=== PATIENT | male | born 1950 | race Caucasian/White ===

== ENCOUNTER → 2022-03-13 | Outpatient (CLI) | payer MEDICARE, OTHER, SELFPAY ==
--- NOTE | 2022-03-13 | PROSBIL_PTH ---
PATIENT: AUGUST CUEVAS LOC: [facility] U#:[id number] AGE/SX: 71/M ROOM: RE03/13/[address]: Dr. Nuno Garcia MD : 1950 BED: DIS: 03/13/2022 SPEC #: [id number] RECD: 03/13/22 16:25 STATUS: PHOEBE VALENTINA #: [id number] SARAH: 03/13/22 00:[address]: Nuno Garcia DEPT: SURGICAL PATHOLOGY RECD BY: Amauri Hermosillo ENTERED: 03/14/22 09:13 SP TYPE: PROST BX VANDANA DR: Dr. Kayleigh Cooney MD Tissues: A - PROSTATE RIGHT B - PROSTATE RIGHT C - PROSTATE RIGHT D - PROSTATE LEFT E - PROSTATE LEFT F - PROSTATE LEFT Procedures: PROSTATE BX HEADER OPERATION: Prostate biopsy PRE-OP DIAGNOSIS: Elevated PSA TISSUE SUBMITTED: A - Right apex, B - Right mid, C - Right base, D - Left apex, E - Left mid, F - Left base MICROSCOPIC DIAGNOSIS A. Right prostate, apex, core biopsy: Prostatic tissue, negative for malignancy. B. Right prostate, mid, core biopsy: Prostatic tissue, negative for malignancy. C. Right prostate, base, core biopsy: Prostatic adenocarcinoma. Anthony grade: 3+3=6 Number of cores involved: 2/2 Proportion of tissue involved: ~10% Perineural invasion: Not identified. Greatest tumor length: 0.4 cm, discontinuous. Focal high-grade prostatic intraepithelial neoplasia (HGPIN). See comment. D. Left prostate, apex, core biopsy: Prostatic adenocarcinoma. Anthony grade: 3+3=6 Number of cores involved: 1/2 Proportion of tissue involved: ~30% Perineural invasion: Present, focal. Greatest tumor length: 0.3 cm E. Left prostate, mid, core biopsy: Focal high-grade prostatic intraepithelial neoplasia (HGPIN). F. Left prostate, base, core biopsy: Prostatic tissue, negative for malignancy. SJ:pedro 03/15/2022 COMMENT C. Immunohistochemistry ([id number]) supports the above diagnosis. Case has been reviewed in consultation with Dr. Montgomery who concurs with the above diagnosis. IDC:AM MICROSCOPIC DESCRIPTION Slides are reviewed. GROSS DESCRIPTION A - Received is one container designated prostate, right apex. The specimen consists of one elongated fragment of light leal-white soft tissue measuring 1.1 cm in length and 0.1 cm in diameter. The specimen is totally submitted in one cassette. B - Received is one container designated prostate, right mid. The specimen consists of two elongated fragments of light leal-white soft tissue measuring 0.6 and 1.2 cm in length and 0.1 cm in diameter. The specimen is totally submitted in one cassette. C - Received is one container designated prostate, right base. The specimen consists of two elongated fragments of light leal-white soft tissue each measuring 1.2 cm in length and 0.1 cm in diameter. The specimen is totally submitted in one cassette. D - Received is one container designated prostate, left apex. The specimen consists of two elongated fragments of light leal-white soft tissue each measuring 0.5 cm in length and 0.1 cm in diameter. The specimen is totally submitted in one cassette. E - Received is one container designated prostate, left mid. The specimen consists of two elongated fragments of light leal-white soft tissue measuring 0.6 and 1 cm in length and 0.1 cm in diameter. The specimen is totally submitted in one cassette. F - Received is one container designated prostate, left base. The specimen consists of two elongated fragments of light leal-white soft tissue measuring 0.8 and 0.9 cm in length and 0.1 cm in diameter. The specimen is totally submitted in one cassette. / FAISAL:pedro 03/14/2022 TC:0 CPT: G0146
--- NOTE | 2022-03-13 | IMM_PTH ---
PATIENT: AUGUST CUEVAS LOC: [facility] U#:[id number] AGE/SX: 71/M ROOM: RE03/13/[address]: Dr. Nuno Garcia MD : 1950 BED: DIS: 03/13/2022 SPEC #: [id number] RECD: 03/15/22 13:03 STATUS: PHOEBE REQ #: [id number] SARAH: 03/13/22 00:[address]: Nuno Garcia DEPT: IMMUNOHISTOCHEMISTRY RECD BY: Raven Muse ENTERED: 03/15/22 13:04 SP TYPE: IMMUNO OTHR DR: Dr. Kayleigh Cooney MD Tissues: C - PROSTATE RIGHT Procedures: P40 (add) 34BE12 (initial) PHYSICIAN & INSTITUTION [place] [phone] SPECIMEN INFORMATION: Tissue Source: C - Right prostate, base, core biopsy Clinical Info: Elevated PSA Specimen Number: [id number] CPT code: 75319, 26401 METHODOLOGY: Deparaffinized sections of prefer/formalin-fixed tissue or PAP/DQ stained slides are incubated with monoclonal/polyclonal antibodies/oligonucleotide probes. Localization is made via biotin free immunoperoxidase method. Appropriate controls are performed and reacted as expected. Results on target cell population are indicated in the following table: RESULTS: ANTIBODY / CLONE RESULT Block C P40 (BC28) negative 34BE12 (34BE12) negative These tests were developed and their performance characteristics determined by [facility]. They may not have been cleared or approved by the U.S. Food and Drug Administration. The FDA has determined that such clearance or approval is not necessary. The above immunohistochemical/dualISH markers are ordered and reviewed by the Pathologist. INTERPRETATION: C. Right prostate, base, core biopsy: Adenocarcinoma. FAISAL:pedro 03/15/2022
== END | disposition home or self-care (01) ==
LOC: LABSPEC 16:41
PROVIDERS: PCP Family Medicine; Referring Provider Urology; Visit Provider Urology
DX: C61 Malignant neoplasm of prostate (principal)
CPT/HCPCS: 88305; 88341; 88342; G0416

== ENCOUNTER → 2022-09-06 | Outpatient (CLI) | payer MEDICARE, OTHER, SELFPAY ==
[2022-09-06 15:30] LABS: PSA,Total- Diagnostic 4.64 ng/mL (0.0-4.0)
== END | disposition home or self-care (01) ==
LOC: MTLAB 12:53
PROVIDERS: PCP Family Medicine; Referring Provider Urology; Visit Provider Urology
DX: C61 Malignant neoplasm of prostate (principal)
CPT/HCPCS: 36415; 84153

== ENCOUNTER → 2024-09-15 | Outpatient (CLI) | payer MEDICARE, OTHER, SELFPAY ==
--- NOTE | 2024-09-15 10:42 | MRI_ITS ---
STUDY: MR PROSTATE GLAND/ PELVIS WITH T WITHOUT CONTRAST REASON FOR EXAM: Male, 74 years old. MALIGNANT NEOPLASM OF PROSTATE TECHNIQUE: Standardized fat and water weighted pulse sequences were obtained in all 3 orthogonal planes, pre-and post contrast administration. IV 17cc clariscan was administered for the contrast portion of the examination. COMPARISON: None. FINDINGS: Prostate gland volume/size: 4.38 x 3.87 x 5.52 cm. Anterior fibromuscular stroma: Normal Peripheral zone: Small 5.6 mm low signal nodule in the far anterior and medial aspect of the left peripheral zone with diffuse bright diffusion weighted signal in the nodule and the surrounding left peripheral zone and associated ADC dark signal. On the postcontrast study no enhancement is present in the nodule with is seen in the surrounding tissue. This could represent a poorly vascularized or necrotic tumor or nonspecified intermediate nodule that is equivocal. Mostly symmetric bilaterally with a few linear interstitial fibrotic strands bilaterally. Central zone: Diffusely heterogeneous with small intervening cyst and nodules consistent with BPH. Diffuse postcontrast enhancement is present bilaterally. No discrete enhancing nodule or mass is seen that would indicate a neoplasm. Transitional zone: Diffusely heterogeneous with small intervening cyst and nodules consistent with BPH. Diffuse postcontrast enhancement is present bilaterally. No discrete enhancing nodule or mass is seen that would indicate a neoplasm. Prostate capsule: Intact Seminal vesicles: Normal bilaterally Pelvic sidewall lymphadenopathy: No lymphadenopathy is present. Bony structures: No marrow edema or lytic or blastic lesions are present. No enhancing lesions are present in the osseous structures. Normal urinary bladder. Normal visualized small intestine. There are multiple colonic diverticula of the sigmoid colon consistent with chronic diverticulosis. There is no pelvic fluid. There is no pelvic mass lesion or lymphadenopathy. Normal visualized pelvic arteries. Normal abdominal wall. MRI/Pelvis W/WO Contrast IMPRESSION: 1. Peripheral zone: Small 5.6 mm low signal nodule in the far anterior and medial aspect of the left peripheral zone with diffuse bright diffusion weighted signal in the nodule and the surrounding left peripheral zone and associated ADC dark signal. On the postcontrast study no enhancement is present in the nodule with is seen in the surrounding tissue. This could represent a poorly vascularized or necrotic tumor or nonspecified intermediate nodule that is equivocal 2. It is possible after biopsy the tumor was removed or cored and is now poorly visualized. Also if there has been any treatment this could suppress neoplastic features detected by MRI. 3. PI-RADS 3: intermediate (the presence of clinically significant cancer is equivocal) 4. Referring service reports a positive prostate gland biopsy indicative of neoplasm. 5. Prostate PET/CT exam can also be performed to determine if there is viable malignant neoplasm in the prostate gland. Prostate MRI reference: 15-30% of prostate cancers can go undetected on Prostate MRI. Monitoring and assessment by Primary physician, Urology, and oncology service recommended and treated clnically. (Cancers (Bas[place]). 2022Oct 09;15(06):5827. doi: [id number] Prostate Cancers Invisible on Multiparametric MRI: Pathologic Features in Correlation with Whole-Mount Prostatectomy Natalio Truong 1,2,*, Nick Trevino 3, Chelly Boogie 1,2, Jessica Hsieh 1,2, Mauro Milton 4, Julito Poon 5, Shadi Bell 6, Compa Ydaav 1,2, Lorrie Salgado 1,2) Reference information: Normal prostate tissue Benign prostatic hypertrophy cancer/tumor - low signal peripheral , transitional, and central zones malignancy appears as bright on DWI and low signal on ADC map Prostate imaging-reporting and data system (PI-RADS) PI-RADS 1: very low (clinically significant cancer is highly unlikely to be present) PI-RADS 2: low (clinically significant cancer is unlikely to be present) PI-RADS 3: intermediate (the presence of clinically significant cancer is equivocal) PI-RADS 4: high (clinically significant cancer is likely to be present) PI-RADS 5: very high (clinically significant cancer is highly likely to be present) PI-RADS X: component of exam technically inadequate or not performed Prostate malignancy distribution: Peripheral zone: 70-80% Transitional zone: 10-20% Central zone: 5% or less Electronically Signed: Jose Antonio Romero MD at 10:33 EST ,
[2024-09-15 11:37] LABS: CREATININE FINGERSTICK < 1.0 mg/dL (0.70-1.30); EGFR FINGERSTICK > 60.0000 mL/min (>60)
== END | disposition home or self-care (01) ==
PROVIDERS: PCP Family Medicine; Referring Provider Urology; Visit Provider Urology
DX: C61 Malignant neoplasm of prostate (principal)
CPT/HCPCS: 72197; A9575

== ENCOUNTER → 2024-10-06 | Outpatient (CLI) | payer MEDICARE, OTHER, SELFPAY ==
--- NOTE | 2024-10-06 13:00 | PROSBIL_PTH ---
PATIENT: AUGUST CUEVAS LOC: [facility] U#:[id number] AGE/SX: 74/M ROOM: RE10/06/[address]: Dr. Nuno Garcia MD : 1950 BED: DIS: 10/06/2024 SPEC #: [id number] RECD: 10/07/24 07:19 STATUS: PHOEBE REJohann #: [id number] SARAH: 10/06/24 13:[address]: Nuno Garcia DEPT: SURGICAL PATHOLOGY RECD BY: Diana Wheeler ENTERED: 10/07/24 07:20 SP TYPE: PROST BX OT DR: Dr. Kayleigh Cooney MD Tissues: A - PROSTATE RIGHT B - PROSTATE LEFT Procedures: PROSTATE BX HEADER OPERATION: Prostate biopsy PRE-OP DIAGNOSIS: Elevated PSA TISSUE SUBMITTED: A- Right base, B- Left apex MICROSCOPIC DIAGNOSIS A. Right prostate, base, core biopsy: Prostatic adenocarcinoma. Rob grade: 3+4=7 Number of cores involved: 1/2 Proportion of tissue involved: ~40 % Perineural invasion: Not identified. Greatest tumor length: 0.7 cm Focal high-grade prostatic intraepithelial neoplasia (HGPIN). B. Left prostate, apex, core biopsy: Prostatic tissue, negative for malignancy. FAISAL. 10/08/2024 COMMENT Case has been reviewed in consultation with Dr. Montgomery who concurs with the above diagnosis. IDC:AM MICROSCOPIC DESCRIPTION Slides are reviewed. GROSS DESCRIPTION A - Received is one container designated prostate, right base. The specimen consists of two elongated fragments of light leal-white soft tissue each measuring 1.0 cm in length and 0.1 cm in diameter. The specimen is totally submitted in one cassette. B - Received is one container designated prostate, left apex. The specimen consists of two elongated fragments of light leal-white soft tissue measuring 0.5 and 0.7 cm in length and 0.1 cm in diameter. The specimen is totally submitted in one cassette. FAISAL. 10/07/2024 TC:0 CPT: G0146
== END | disposition home or self-care (01) ==
LOC: LABSPEC 16:27
PROVIDERS: PCP Family Medicine; Referring Provider Urology; Visit Provider Urology
DX: C61 Malignant neoplasm of prostate (principal); R97.20 Elevated prostate specific antigen [PSA]
CPT/HCPCS: 88305; G0416

== ENCOUNTER 2024-11-27 09:26 | Day surgery (SDC) | payer MEDICARE, OTHER, SELFPAY ==
[2024-11-27] VITALS (9 sets, daily range): BP systolic 116–126; BP diastolic 80–98; PULSE 74–104; RESP 14–18; TEMP 2.2–36.9; O2SAT 92–99; BMI 27.6
--- NOTE | 2024-11-27 09:53 | PCM.PRE.AN2 ---
ASA Classification* ASA Classification ASA Classification: 2 Assessment & Plan Anesthesia* Anesthesia Assessment Anesthesia Assessment: Discussed sedation and/or anesthesia options, risks, benefits, and alternatives with patient/parents/legal guardian/POA. Questions invited. The patient/parents/legal guardian/POA seems to understand and agrees to proceed with anesthesia plan. Reviewed the physical assessment, medical history, allergy history and patient home medications list prior to surgery/procedure/anesthetic and documented any changes. Performed airway and anesthesia risk assessments. Anesthesia Type Anesthesia Type: General Anesthesia Focused Assessment* Temperature: 98.5 F Pulse Rate: 74 Blood Pressure: 117/87 Respiratory Rate: 16 Pulse Ox: 98 Airway Assessment Mouth opens: >3 cm Mallampati Score: II Focused Labs Anesthesia Preop lab: CBC CHEMISTRY COAG Pre-Assessment Diagnosis/Proposed Procedure Planned Operative Procedure(s): SPACE OARS AND GOLD MARKERS PLACEMENT Anesthesia History Anesthesia History - safety specialist: Anesthesia History - safety specialist Hx Hospitalization No 11/20/24 11:30 Any Problems With Anesthesia No 11/20/24 11:30 Cholinesterase deficiency No 11/20/24 11:30 You/Your Family Experience No 11/20/24 11:30 fever (hyperthermia) with Relationship Recent Exposure to Contagious No 11/27/24 09:47 Disease Does patient have nerve No 11/20/24 11:30 stimulator Patient instructed to have device shut off --Does patient have Pacemaker No 11/27/24 09:47 or ICD? When Was Last Pacemaker Check QUESTION #4 FULL TEXT: You/Your Family Experience fever (hyperthermia) with Anesthesia Last Oral Intake Last Oral intake: Last Oral Intake NPO since 00:00 11/27/24 09:47 Meds taken in AM with sips of water? Meds patient instructed to take am of surgery PONV PONV - safety specialist: PONV - safety specialist Female No 11/20/24 11:30 HX of Motion Sickness No 11/20/24 11:30 HX of N/V After Surgery No 11/20/24 11:30 Non-Smoker Yes 11/20/24 11:30 Duration of Surgery greater No 11/20/24 11:30 than 60 minutes Number of Risk Factors 1 11/20/24 11:30 PONV Score Low Risk 11/20/24 11:30 Height & Weight Height & Weight: Anesthesia: Height & Weight Height 5 ft 11 in 11/27/24 09:47 Weight: 89.811 kg 11/27/24 09:47 Body Mass Index (BMI) 27.6 11/27/24 09:47 Respiratory Assessment Respiratory Assessment - safety specialist: Respiratory Tract Infection Hx - safety specialist Hx Respiratory Tract Infection No 11/20/24 11:30 STOP Sleep Apnea STOP Sleep Apnea - safety specialist: STOP Sleep Apnea - safety specialist Hx Hypertension No 11/20/24 11:30 Hx Sleep Apnea No 11/20/24 11:30 CPAP BIPAP Do you snore loudly (louder Yes 11/20/24 11:30 than talking or can be heard Do you often feel tired/ Yes 11/20/24 11:30 fatigued/ sleepy during daytime? Has anyone observed you stop No 11/20/24 11:30 breathing during sleep? STOP Results Positive 11/20/24 11:30 QUESTION #5 FULL TEXT : Do you snore loudly (louder than talking or can be heard through closed doors)? Tobacco Use History Tobacco Use History - safety specialist: Tobacco Use History - safety specialist Tobacco Use Smoking Status Never smoker 11/20/24 11:30 Hx Tobacco Use No 11/20/24 11:30 Years Smoking Packs Smoked per Day Smoking Cessation Date was within the last 15 years Hx Smoking Cessation Date Hx Smoking Cessation Counseling Hematologic Medial History Hematologic Hx - safety specialist: Hematologic Medical Hx - machine marker Hx of Blood Transfusion No 11/20/24 11:30 Hx of Transfusion in last 3 No 11/20/24 11:30 Months Date of Last Transfusion (if within last 3 months) Ever experience any problems No 11/20/24 11:30 with transfusion(s)? Specify any problems Hx of Preganancy in last 3 N/A 11/20/24 11:30 Months Nurse Filling Out Transfusion DSCHRIBER 11/20/24 11:30 & Questions: Date: 11/20/24 11/20/24 11:30 Time: 11:32 11/20/24 11:30 Patient unable to answer at this time (ie. confused, unrespo /Reproduction History /Reproductive History - safety specialist: /Reproductive Hx- safety specialist Hx Now No 11/20/24 11:30 Gestational Age (in weeks): EDC: Hx Hx Para Hx Section SAB No 11/20/24 11:30 Active Medications Active Medications: Current Medications Generic Name Dose Route Start Last Admin Trade Name Freq PRN Reason Stop Dose Admin Cefazolin Sodium 2 gm/ N/A 20 mls @ 400 mls/hr 11/27/24 11:30 IV 11/27/24 11:32 PREOP ONE Sodium Chloride 1,000 mls @ 15 mls/hr 11/27/24 09:30 IV 12/02/24 22:49 .Q48H [facility] Protocol PFSH Medical History Wears glasses Arthritis Restless legs Heartburn Asthma Non-smoker History of pain when walking History of edema History of Holter monitoring Hx of fracture of hip Hyperlipemia Prostate cancer Home Medications ?Medication ?Instructions ?Recorded ?Last Taken ?Type atorvastatin 20 mg tablet 10 mg PO QHS 11/10/24 Unknown History coenzyme Q10 100 mg capsule (Co 100 mg PO QDAY 11/10/24 Unknown History Q-10) multivitamin 1 tab PO QAM 11/10/24 Unknown History vitamins A,C,R-ssdv-euwgkq 4,296 1 cap PO BID 11/10/24 Unknown History mcg-226 mg-90 mg capsule (PreserVision AREDS) lysine 500 mg tablet (L-Lysine) 500 mg PO QDAY 11/13/24 Unknown History saw palm 160 mg-vit E 100 3 tab PO DAILY 11/13/24 Unknown History unit-selen 100 lwx-uams-zzsthn-pygeum tablet ([facility]) BOWELLIA 2 cap PO DAILY 11/20/24 Unknown History RESVERITOL 2 cap PO DAILY 11/20/24 Unknown History atorvastatin 10 mg tablet 10 mg PO QHS 11/20/24 Unknown History Allergy/AdvReac Type Severity Reaction Status Date / Time No Known Allergies Allergy Verified 11/27/24 09:45 Surgical History Hx of right cataract extraction Hx of left cataract extraction Hx of colonoscopy H/O prostate biopsy Social History Smoking Status: Never smoker alcohol intake: never Review of Systems (Anesthesia) ROS Narrative System reviewed and no additional complaints, except as documented.
[2024-11-27] MEDS: 0.9% Normal Saline (1000mL) 1,000 ML 15 ML IV (09:55)
--- NOTE | 2024-11-27 10:50 | PCM.HP.STD ---
HPI - General General Date of Service: 11/27/24 Chief Complaint: Prostate cancer HPI Narrative AUGUST CUEVAS, is a 74 M who presents for placement of gold markers and spacer gel [facility] Medical History Wears glasses Arthritis Restless legs Heartburn Asthma Non-smoker History of pain when walking History of edema History of Holter monitoring Hx of fracture of hip Hyperlipemia Prostate cancer Home Medications ?Medication ?Instructions ?Recorded ?Last Taken ?Type atorvastatin 20 mg tablet 10 mg PO QHS 11/10/24 Unknown History coenzyme Q10 100 mg capsule (Co 100 mg PO QDAY 11/10/24 Unknown History Q-10) multivitamin 1 tab PO QAM 11/10/24 Unknown History vitamins A,C,C-ghvm-pejxxt 4,296 1 cap PO BID 11/10/24 Unknown History mcg-226 mg-90 mg capsule (PreserVision AREDS) lysine 500 mg tablet (L-Lysine) 500 mg PO QDAY 11/13/24 Unknown History saw palm 160 mg-vit E 100 3 tab PO DAILY 11/13/24 Unknown History unit-selen 100 lgg-jdou-vlnzlv-pygeum tablet ([employer]) BOWELLIA 2 cap PO DAILY 11/20/24 Unknown History RESVERITOL 2 cap PO DAILY 11/20/24 Unknown History atorvastatin 10 mg tablet 10 mg PO QHS 11/20/24 Unknown History Allergy/AdvReac Type Severity Reaction Status Date / Time No Known Allergies Allergy Verified 11/27/24 09:45 Surgical History Hx of right cataract extraction Hx of left cataract extraction Hx of colonoscopy H/O prostate biopsy Social History Smoking Status: Never smoker alcohol intake: never Vital Signs Vital Signs Vital Signs: 11/27/24 09:47 11/27/24 09:47 11/27/24 09:53 Temperature 98.5 F 98.5 F Temperature Source Temporal Pulse Rate 74 74 Respiratory Rate 16 16 Respiratory Pattern Normal Blood Pressure 117/87 H 117/87 H Blood Pressure Mean 97 Blood Pressure Source Monitor Blood Pressure Position Semi-Fowlers Blood Pressure Location Left Arm Pulse Ox 98 98 Oxygen Delivery Method Room Air Weight Weight: 89.811 kg Body Mass Index (BMI) 27.6
--- NOTE | 2024-11-27 10:50 | PCM.DC ---
Discharge Instructions Diet Discharge Diet: No restrictions DC O2, CPAP, BIPAP needs Home O2 Discharge instructions: No Dressing / Incision Discharge Activity: Return to Normal Activity and May Not Drive (while taking narcotic pain medications.) Dressing / Incision Call your doctor if you observe: Fever of 101 or Higher Follow Up Care Please Follow Up With: Nuno Garcia MD When: Call [phone] for an appointment Test Results: Test results from this visit will be discussed in further detail at your follow-up appointment, if applicable. Discharge Plan Admission Primary Reason for Your Visit: gold markers and spacer gel Attending Provider: Nuno Garcia Primary Care Provider: Kayleigh Cooney Instructions Print Language: Andorran Discharge Orders/Prescriptions Prescriptions: Continued lysine [L-Lysine] 500 mg tablet 500 mg PO QDAY [facility] 160-100-100 mg-unit-mcg tablet 3 tab PO DAILY atorvastatin 20 mg tablet 10 mg PO QHS coenzyme Q10 [Co Q-10] 100 mg capsule 100 mg PO QDAY multivitamin Tablet 1 tab PO QAM PreserVision AREDS 4,296 mcg-226 mg-90 mg capsule 1 cap PO BID atorvastatin 10 mg tablet 10 mg PO QHS RESVERITOL 2 cap PO DAILY BOWELLIA 2 cap PO DAILY Referrals / Follow Up: Kayleigh Cooney MD [Primary Care Provider] - Nuno Garcia MD [Med Staff - Active Staff] - Disposition Disposition (needs filled in before D/C Order can be placed): Home, Self Care
[2024-11-27] MEDS: Cefazolin 2 GM in Syringe IV (10:59)
--- NOTE | 2024-11-27 11:07 | PCM.OPRPT ---
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 Type of Anesthesia: General RN Documented Start/Stop Times: Operation Date: 11/27/24 11:30 Case Time Into Pre-Op 11/27/24 09:29 Anesthesia Start 11/27/24 10:49 Into Room 11/27/24 10:49 Procedure Start 11/27/24 10:59 Procedure End 11/27/24 11:05 Procedure Start Time: 10:59 Procedure Stop Time: 11:07 Select all DRAINS/GRAFTS/IMPLANTS that apply: None Estimated Blood Loss: 0 Specimen collected: No Description of surgery: In the preoperative area I reviewed with the patient how the procedure is done we talked about the risk of the procedure including the risk of infection, bleeding, migration of the spacer gel, the patient is planning to have radiation to the prostate he understands that the spacer gel has demonstrated benefit in reducing the risk of toxicity from the ration radiation to the rectum but there is no guarantees that this spacer gel will prevent any serious complications or toxicity to the rectum or bowels. After reviewing this with the patient and his family organ to proceed with placement of a spacer gel matrix. Patient was taken back to the operating room after smooth induction of anesthesia he was placed supine on the table. The genitals and perineum were prepped and draped in usual sterile fashion. I then introduced a biplanar ultrasound probe into the rectum and performed ultrasonography and identified the Denonvilliers' fascia the prostate mid base and apex and seminal vesicles. The spacer gel mix was then prepared on the back table per manufactures instruction. Under ultrasound guidance in the midline perineum a bevel needle down we advanced through the perineum below the prostate into the space of Denonvilliers' fascia. This space which could be identified by ultrasound with a bright white layer between the prostate and the rectum. I then injected a puff of normal saline to identify the space further. After I confirmed that the needle was in the correct space in the mid prostate and the space of Denonvilliers' fascia between the rectum and the prostate. Then over the course of 15 seconds the gel matrix was injected slowly there was nice separation between the prostate and the rectum at the gel matrix was injected. The position of the gel matrix was confirmed by ultrasound. Then the injection needle was removed intact. Patient's perineum was cleaned patient was taken out of stirrups and then taken back to the PACU in good condition. The penis and testicles were prepped and draped in usual sterile fashion, ultrasound probe was placed into the rectum and biplanar ultrasound was performed on the prostate. Identified the base mid and apex of the prostate identified the transition zone prostate. Then using a needle the first bowling ball grader and marker was placed into the right base of the prostate, the second bowling ball grader and marker was placed in the left base of the prostate, and the third core marker was placed in the right apex of the prostate after all 3 markers were placed the placement of the markers were confirmed by ultrasonography. Surgical Findings: gold markers placed, and gold markers Complications Complications: No Admit VTE Documentation VTE Present on Admission: No VTE Mechan Device Prophylaxis: SCD's VTE Pharm Prophylaxis ordered?: No
--- NOTE | 2024-11-27 11:18 | PCM.POST.ANE ---
Anesthesia: Postop Eval I Current Vital Signs Temperature: 36 F Pulse Rate: 80 Blood Pressure: 124/80 Respiratory Rate: 16 Pulse Ox: 98 Oxygen Delivery Method: Room Air Assessment Airway patent: Yes Spontaneous unlabored respirations: Yes Mental status: Awake and Calm nausea: No Vomiting: No Anesthesia Complication: No Fluid Hydration Crystalloid volume administer (ml): 400 Total IV fluid infused: 400 Progress Note Anesthesia document: Postop Eval 1 completed: Yes
--- NOTE | 2024-11-27 12:12 | POSTOPAN2_ITS ---
Anesthesia Postop Eval I Sum Postop Eval Completion status Anesthesia document: Postop Eval 1 completed: Yes Anesthesia Postop Eval I Summary Anesthesia Postop Eval I Summary: Anesthesia Postop Eval I: Assessment Summary Airway patent Yes 11/27/24 11:19 [email or web address] Spontaneous unlabored Yes 11/27/24 11:19 [email or web address] respirations Mental status Awake,Calm 11/27/24 11:19 [email or web address] nausea No 11/27/24 11:19 [email or web address] Vomiting No 11/27/24 11:19 [email or web address] Anesthesia Postop Eval I: Fluid Summary Crystalloid volume administer 400 11/27/24 11:19 [email or web address] (ml) Colloids volume administered ( ml) Blood Product volume administered (ml) Total IV fluid infused 400 11/27/24 11:19 [email or web address] Anesthesia Postop Eval I: Summary Notes Anesthesia Complication No 11/27/24 11:19 [email or web address] Anesthesia Complication Comment: Post-operative progress note Anesthesia: Postop Eval II Evaluation Mental status: Awake Pain Level: 0 nausea: No Vomiting: No
--- NOTE | 2024-11-27 12:12 | PCM.POSTANE2 ---
Anesthesia Postop Eval I Sum Postop Eval Completion status Anesthesia document: Postop Eval 1 completed: Yes Anesthesia Postop Eval I Summary Anesthesia Postop Eval I Summary: Anesthesia Postop Eval I: Assessment Summary Airway patent Yes 11/27/24 11:19 [email or web address] Spontaneous unlabored Yes 11/27/24 11:19 [email or web address] respirations Mental status Awake,Calm 11/27/24 11:19 [email or web address] nausea No 11/27/24 11:19 [email or web address] Vomiting No 11/27/24 11:19 [email or web address] Anesthesia Postop Eval I: Fluid Summary Crystalloid volume administer 400 11/27/24 11:19 [email or web address] (ml) Colloids volume administered ( ml) Blood Product volume administered (ml) Total IV fluid infused 400 11/27/24 11:19 [email or web address] Anesthesia Postop Eval I: Summary Notes Anesthesia Complication No 11/27/24 11:19 [email or web address] Anesthesia Complication Comment: Post-operative progress note Anesthesia: Postop Eval II Evaluation Mental status: Awake Pain Level: 0 nausea: No Vomiting: No
== END 2024-11-27 12:19 | disposition home or self-care (01) ==
LOC: SDC 09:26 → AC 09:28
PROVIDERS: PCP Family Medicine; Referring Provider Urology; Visit Provider Urology
PROC: (CPT 55874; principal; 2024-11-27 11:15)
DX: C61 Malignant neoplasm of prostate (principal); E78.5 Hyperlipidemia, unspecified; J45.909 Unspecified asthma, uncomplicated
CPT/HCPCS: 55874; 55876; 00400; J2405

== ENCOUNTER → 2024-12-07 | Outpatient (CLI) | payer MEDICARE, OTHER, SELFPAY ==
--- NOTE | 2024-12-07 12:21 | MRI_ITS ---
PROCEDURE: PELVIS W/WO CONTRAST REASON FOR EXAM: Known prostate cancer. Elevated PSA. TECHNIQUE: Multiplanar, multisequence MRI of the prostate was performed before and following intravenous gadolinium-based contrast. Axial, coronal, and sagittal high-resolution T2-weighted images, axial T1-weighted images, diffusion-weighted images with high B value, and dynamic postcontrast fat saturated T1-weighted images were performed. CONTRAST: 17 mL Clariscan intravenous COMPARISON: Prostate MRI September 15, 2024. FINDINGS: Prostate Volume: 52.3 mL (prostate measures 5.1 cm in transverse dimension by 4 cm in AP dimension by 4.9 cm craniocaudally) Peripheral Zone: In the mid gland, right posterolateral peripheral zone is a 1 cm area of T2 hypointensity some of which exhibits increased DWI signal and corresponding hypointensity on ADC map. This is considered a PI-RADS 4 lesion and retrospectively similar to August 2024. The previously described left anterior peripheral zone lesion is not apparent on this study. Transitional Zone: BPH. Seminal vesicles: New spacer gel is present between the posterior prostate and seminal vesicle margins and the rectum, thickness of the gel is approximately 7 mm in AP dimension. Seminal vesicles are unremarkable. Neurovascular bundles: Normal and symmetric. Lymph nodes: No lymphadenopathy is identified. Bone marrow: No suspicious lesions. Left hip susceptibility artifact from hardware. Miscellaneous: Tiny fat containing left inguinal hernia. Sigmoid diverticulosis. MRI/Pelvis W/WO Contrast IMPRESSION: PI-RADS 4 lesion in the posterolateral right peripheral zone at the midgland, r etrospectively similar to August 2024. Previously described left anterior peripheral zone lesion is not identified on this exam. New spacer gel between the prostate/seminal vesicles and rectum. Reading Location: [facility]
== END | disposition home or self-care (01) ==
LOC: MRI 12:16
PROVIDERS: PCP Family Medicine; Referring Provider Student in an Organized Health Care Education/Training Program; Visit Provider Student in an Organized Health Care Education/Training Program
DX: C61 Malignant neoplasm of prostate (principal)
CPT/HCPCS: 72197; A9575

== ENCOUNTER → 2025-03-16 | Outpatient (CLI) | payer MEDICARE, OTHER, SELFPAY ==
--- NOTE | 2025-03-16 12:46 | RAD_ITS ---
PROCEDURE: THORACIC SPINE 3 VIEWS 03/16/2025 REASON FOR EXAM: MID BACK PAIN X 1 WEEK, HX OF PROSTATE CA TECHNIQUE: Three views of the thoracic spine COMPARISON: None FINDINGS: There is a 50% compression deformity anteriorly at L1. There is a 50% anterior compression deformity at T9. There is a 25% anterior compression deformity at T6, and T7. Osteopenia is noted. RAD/Thoracic Spine 3 Views IMPRESSION: There is a 50% compression deformity anteriorly at L1. There is a 50% anterior compression deformity at T9. There is a 25% anterior compression deformity at T6, and T7. MRI or bone scan could be helpfu l to determine chronicity. Reading Location: [facility]
[2025-03-16 15:47] LABS: Color, Urine Yellow (Yellow); Glucose, Dipstick 250 mg/dl (Normal); Ketone-Dipstick Negative (Negative); Leukocyte Esterase-Dipstick Negative /ul (Negative); Nitrite-Dipstick Negative (Negative); Occult Blood-Urine 10 /ul (Negative); Protein-Dipstick 15 mg/dl (Negative); Specific Gravity, Urine 1.015 (1.002-1.030); Urine Bilirubin Dipstick Negative (Negative); Urine Clarity Clear (Clear); Urine Urobilinogen Normal (Normal)
== END | disposition home or self-care (01) ==
LOC: MTLAB 12:45
PROVIDERS: PCP Family Medicine; Referring Provider Family Medicine; Visit Provider Family Medicine
DX: M54.9 Dorsalgia, unspecified (principal); Z85.46 Personal history of malignant neoplasm of prostate
CPT/HCPCS: 72072; 81002; 87086

== ENCOUNTER → 2025-03-24 | Outpatient (CLI) | payer MEDICARE, OTHER, SELFPAY ==
--- NOTE | 2025-03-24 13:21 | BD_ITS ---
PROCEDURE: DEXA BONE DENSITY STUDY 03/24/2025 REASON FOR EXAM: M, age 74 y/o . Postmenopausal. Status post left hip replacement.. TECHNIQUE: DXA scan of sites with data reported below. REFERENCE LINKS: ISCD Adult Positions COMPARISON: None FINDINGS: BMD and T-SCORES Lumbar spine: 0.860 g/cm2, T-score -2.1 Levels: L1 through L4 Right femoral neck: 0.564 g/cm2, T-score -2.7 Femoral neck comparison data not recommended for monitoring change. Right total hip: 0.731 g/cm2, T-score -2.0 The World Health Organization has defined the following categories based on bone density: Normal bone density: T-score equal to or greater than -1.0 Osteopenia: T-score between -1.0 and -2.5 Osteoporosis: T-score equal to or less than -2.5 The patient does meet the pharmacological treatment recommendations for prevention of osteoporosis. BD/Dexa Bone Density Study IMPRESSION: OSTEOPOROSIS. Recommend follow-up as clinically warranted. Reading Location: [id number]
== END | disposition home or self-care (01) ==
LOC: OPBD 13:17
PROVIDERS: PCP Family Medicine; Referring Provider Family Medicine; Visit Provider Family Medicine
DX: M48.50XA Collapsed vertebra, not elsewhere classified, site unspecified, initial encounter for fracture (principal); X58.XXXA Exposure to other specified factors, initial encounter
CPT/HCPCS: 77080

== ENCOUNTER → 2025-04-13 | Outpatient (CLI) | payer MEDICARE, OTHER, SELFPAY ==
[2025-04-13 10:38] LABS: PSA,Total- Diagnostic 3.37 ng/mL (0.00-4.00)
--- OUTSIDE RECORDS SUMMARY | 2025-04-13 20:50 | XMS RPT_ITS | CCD ---
Author Organization [facility] Care Team Providers Care Turntable Engineer Name Role Phone Ivet HUGHES, Dr. Victor Primary Care Provider [phone] Radha HUGHES, Dr. Nuno Razo Attending Provider Radha HUGHES, Dr. Nuno Razo Referring Provider [phone] Dr. Mikey Blackwell DO Attending Provider Dr. Mikey Blackwell DO Referring Provider Ivet HUGHES, Dr. Victor Referring Provider [phone] Ivet HUGHES, Dr. Victor Attending Provider [phone] SISSY COONEYNAH Primary Care Unavailable IVET, KAYLEIGH Consulting Unavailable KAYLEIGH COONEY Attending Unavailable IVET KAYLEIGH Admitting Unavailable PROVIDER, UNKNOWN Consulting Unavailable PROVIDER, UNKNOWN Consulting Unavailable IVET, KAYLEIGH Primary Care Unavailable IVET KAYLEIGH Consulting Unavailable KAYLEIGH COONEY Attending Unavailable Danni MAURICIO Referring Unavailable KAYLEIGH COONEY Admitting Unavailable PROVIDER, UNKNOWN Consulting Unavailable PROVIDER, UNKNOWN Consulting Unavailable Ivet, Kayleigh Referring Unavailable Mikey Blackwell Attending Unavailable Micristael, Kayleigh Primary Care Unavailable Mikey Blackwell Attending Unavailable Ivet, Kayleigh Primary Care Unavailable Nuno Mauricio Referring Unavailable Mikey Blackwell Referring Unavailable Miedel, Kayleigh Primary Care Unavailable Mikey Blackwell Attending Unavailable Micristael, Kayleigh Primary Care Unavailable Mikey Blackwell Attending Unavailable Mikey Blackwell Referring Unavailable Miedel, Kayleigh Primary Care Unavailable Mikey Blackwell Attending Unavailable Micristael, Kayleigh Primary Care Unavailable Mikey Blackwell Attending Unavailable Mikey Blackwell Referring Unavailable Mikey Blackwell Attending Unavailable Mied, Wild Horse Primary Care Unavailable Miedel, Wild Horse Primary Care Unavailable Joana Tay Attending Unavailable Miedel, Wild Horse Primary Care Unavailable Mikey Blackwell Attending Unavailable Miedel, Wild Horse Primary Care Unavailable Mikey Blackwell Attending Unavailable Mikey Blackwell Referring Unavailable Mikey Blackwell Referring Unavailable Miedel, Wild Horse Primary Care Unavailable Mikey Blackwell Attending Unavailable RadhaNuno Attending Unavailable Miedel, Wild Horse Primary Care Unavailable RadhaNuno Referring Unavailable Miedel, Kayleigh Referring Unavailable Miedel, Kayleigh Attending Unavailable Miedel, Wild Horse Primary Care Unavailable RadhaNuno Attending Unavailable Miedel, Wild Horse Primary Care Unavailable Radha, Nuno Razo Referring Unavailable Miedel, Wild Horse Primary Care Unavailable Mikey Blackwell Attending Unavailable Mikey Blackwell Referring Unavailable Mied, Wild Horse Referring Unavailable Mied, Wild Horse Attending Unavailable Mied, Wild Horse Primary Care Unavailable Miedel, Wild Horse Primary Care Unavailable RadhaNuno Referring Unavailable RadhaNuno Attending Unavailable Mikey Blackwell Attending Unavailable Mikey Blackwell Referring Unavailable Mied, Wild Horse Primary Care Unavailable RadhaNuno Attending Unavailable Mied, Wild Horse Primary Care Unavailable Mied, Wild Horse Primary Care Unavailable Miedel, Wild Horse Referring Unavailable Mikey Blackwell Attending Unavailable Dr. Kayleigh Cooney MD Primary Care Provider Dr. Kayleigh Cooney MD Primary Care Provider Dr. Mikey Blackwell DO Attending Provider [phone] Dr. Mikey Blackwell DO Referring Provider [phone] Medications Current Medications Medication Drug Class(es) Dates Sig (Normalized) Sig (Original) alendronic acid 70 mg oral tablet (1 source) Bisphosphonate Start: 04-13-2025 take 1 tablet by mouth every week Alendronate (Fosamax) 70 mg tablet Active 70 mg PO EVERY WEEK April 13, 2025 12:00am atorvastatin 10 mg oral tablet (6 sources) HMG-CoA Reductase Inhibitor Start: 11-20-2024 take 1 tablet by mouth at bedtime Atorvastatin 10 mg tablet Active 10 mg PO AT BEDTIME November 20, 2024 1:00am Start: 11-10-2024 take 10 mg by mouth at bedtime Atorvastatin 20 mg tablet Active 10 mg PO AT BEDTIME November 10, 2024 1:00am BOWELLIA (3 sources) Start: 11-20-2024 BOWELLIA Activ e 2 NMA PO DAILY November 20, 2024 1:00am lysine 500 mg oral tablet (3 sources) Start: 11-13-2024 take 1 tablet by mouth once daily Lysine (L-Lysine) 500 mg tablet Active 500 mg PO daily November 13, 2024 1:00am Multivitamin tablet (3 sources) Start: 11-10-2024 Multivitamin t ablet Active 1 {tbl} PO EVERY MORNING November 10, 2024 1:00am RESVERITOL (3 sources) Start: 11-20-2024 RESVERITOL Act jules 2 NMA PO DAILY November 20, 2024 1:00am Saw-Vit E-Sod Und-Rfg-Rpfg-Pyg (Prostate Health) 160-100-100 mg-unit-mcg tablet (3 sources) Start: 11-13-2024 Saw-Vit E-Sod Zdu-Kiz-Rfdk-Pyg (Prostate Health) 160-100-100 mg-unit-mcg tablet Active 3 {tbl} PO DAILY November 13, 2024 1:00am tamsulosin hydrochloride 0.4 mg oral capsule (3 sources) alpha-Adrenerg ic Margarita Start: 01-06-2025 take 1 tablet by mouth once daily at bedtime Tamsulosin (Flomax) 0.4 mg capsule Active 0.4 mg PO AT BEDTIME January 06, 2025 12:00am take one tab PO qHS ubidecarenone 100 mg oral capsule (3 sources) Start: 11-10-2024 Coenzyme Q10 ( Co Q-10) 100 mg capsule Active 100 mg PO daily November 10, 2024 1:00am Vitamins A,C,V-Rceq-Iuwcbx (Preservision Areds) 4,296 mcg-226 mg-90 mg capsule (3 sources) Start: 11-10-2024 Vitamins A,C,U-Diza-Ywxhrh (Preservision Areds) 4,296 mcg-226 mg-90 mg capsule Active 1 NMA PO TWICE A DAY November 10, 2024 1:00am Completed/Discontinued Medications Medication Drug Class(es) Dates Sig (Normalized) Sig (Original) calcium ascorbate 500 mg oral tablet (3 sources) Start: 11-10-2024 End: 11-20-2024 take 1 tablet by mouth once daily Ascorbate Calcium (Vitamin C) 500 mg tablet Discontinued 500 mg PO daily November 10, 2024 1:00am November 20, 2024 12:26pm Sandrita Seed Oil-Animas 3-6-9 1,000 mg (580 mg) capsule (3 sources) Start: 11-10-2024 End: 11-20-2024 Sandrita Seed Oil-Animas 3-6-9 1,000 mg (580 mg) capsule Discontinued NMA PO November 10, 2024 1:00am November 20, 2024 12:29pm Problems Active Problems Problem Classification Problem Date Documented Da te Episodic/Chronic Cancer of prostate (11 sources) Primary malignant neoplasm of prostate; Translations: [Malignant neoplasm of prostate] Onset: 01-07-2025 11-13-2024 Chronic Other fractures (1 source) Collapsed vertebra, not elsewhere classified, site unspecified, initial encounter for fracture; Translations: [Collapsed vertebra, not elsewhere classified, site unspecified, initial encounter for fracture] Onset: 03-30-2025 Episodic Spondylosis; intervertebral disc disorders; other back problems (1 source) Dorsalgia, unspecified; Translations: [Dorsalgia, unspecified] Onset: 03-24-2025 Episodic Past or Other Problems Problem Classification Problem Date Documented Da te Episodic/Chronic Other screening for suspected conditions (not mental disorders or infectious disease) (1 source) Elevated prostate specific antigen [PSA]; Translations: [Elevated prostate specific antigen [PSA]] Onset: 11-06-2024 Episodic Results Test Name Value Interpretation Reference Range Facility Bone density reportOrdered B y: Davie Damon on 03-25-2025 Study report Skeletal system DXA [facility] Imaging Services [address] [place], [place] [id number] Dexa Bone Density Study MR#: [id number] Acct: [id number] Name: AUGUST CUEVAS Rep #: [id number] : 1950 M 74 From: Etienne Damon MD PCP: Dr. Kayleigh Cooney MD Status: REG CLI Study:Dexa Bone Density Study Date of Exam: 03/24/25 Exam# [id number] Ordering Dr: Woodrow Cooney MD PROCEDURE: DEXA BONE DENSITY STUDY 03/24/2025 REASON FOR EXAM: M, age 74 y/o . Postmenopausal. Status post left hip replacement.. TECHNIQUE: DXA scan of sites with data reported below. REFERENCE LINKS: ISCD Adult Positions COMPARISON: None FINDINGS: BMD and T-SCORES Lumbar spine: 0.860 g/cm2, T-score -2.1 Levels: L1 through L4 Right femoral neck: 0.564 g/cm2, T-score -2.7 Femoral neck comparison data not recommended for monitoring change. Right total hip: 0.731 g/cm2, T-score -2.0 The World Health Organization has defined the following categories based on bonedensity: Normal bone density: T-score equal to or greater than -1.0 Osteopenia: T-score between -1.0 and -2.5 Osteoporosis: T-score equal to or less than -2.5 The patient does meet the pharmacological treatment recommendations for prevention of osteoporosis. BD/Dexa Bone Density Study IMPRESSION: OSTEOPOROSIS. Recommend follow-up as clinically warranted. Reading Location: [id number] CC: Dr. Kayleigh Cooney MD ~ Wallpaper Scraper: Signed [facility] Dexa Bone Density Studyon Dexa Bone Density Study [facility] Imaging Services [address] [place] [id number] Dexa Bone Density Study MR#: [id number] Acct: [id number] Name: AUGUST CUEVAS Rep #: [id number] : 1950 M 74 From: Davie rosenthal MD PCP: Dr. Kayleigh Cooney MD Status: REG CLI Study: Dexa Bone Density Study Date of Exam: 03/24/25 Exam# [id number] Ordering Dr: Kayleigh Cooney MD PROCEDURE: DEXA BONE DENSITY STUDY 03/24/2025 REASON FOR EXAM: M, age 74 y/o . Postmenopausal. Status post left hip replacement.. TECHNIQUE: DXA scan of sites with data reported below. REFERENCE LINKS: ISCD Adult Positions COMPARISON: None FINDINGS: BMD and T-SCORES Lumbar spine: 0.860 g/cm2, T-score -2.1 Levels: L1 through L4 Right femoral neck: 0.564 g/cm2, T-score -2.7 Femoral neck comparison data not recommended for monitoring change. Right total hip: 0.731 g/cm2, T-score -2.0 The World Health Organization has defined the following categories based on bone density: Normal bone density: T-score equal to or greater than -1.0 Osteopenia: T-score between -1.0 and -2.5 Osteoporosis: T-score equal to or less than -2.5 The patient does meet the pharmacological treatment recommendations for prevention of osteoporosis. BD/Dexa Bone Density Study IMPRESSION: OSTEOPOROSIS. Recommend follow-up as clinically warranted. Reading Location: [id number] CC: Dr. Kayleigh Cooney MD Wallpaper Scraper: Signed Normal [facility] Urine Cultureon 03-17-2025 URC ORDER SAID TO REFLEX TO C S Culture exhibits no growth. Normal [facility] Comment on above: Performed By: #### M 100.2200, L400.2010 ####[facility] [address] [place], [address] Bilirubin Test strip Ql (U)O rdered By: Kayleigh Cooney on 03-16-2025 Bilirubin Ql (U) Negative Negative [facility] Ketones Test strip Ql (U)Ord ered By: Kayleigh Cooney on 03-16-2025 Ketones Ql (U) Negative Negative [facility] Nitrite Test strip Ql (U)Ord ered By: Kayleigh Cooney on 03-16-2025 Nitrite Ql (U) Negative Negative [facility] Protein Test strip Ql (U)Ord ered By: Kayleigh Cooney on 03-16-2025 Protein Ql (U) 15 mg/dl High Negative [facility] Thoracic Spine 3 Viewson Thoracic Spine 3 Views [facility] Imaging Services [address] [place], [place] [address] Thoracic Spine 3 Views MR#: [id number] Acct: [id number] Name: AUGUST CUEVAS Rep #: [id number] : 1950 M 74 From: Tacho Long MD PCP: Dr. Kayleigh Cooney MD Status: REG CLI Study: Thoracic Spine 3 Views Date of Exam: 03/16/25 Exam# [id number] Ordering Dr: Kayleigh Cooney MD PROCEDURE: THORACIC SPINE 3 VIEWS 03/16/2025 REASON FOR EXAM: MID BACK PAIN X 1 WEEK, HX OF PROSTATE CA TECHNIQUE: Three views of the thoracic spine COMPARISON: None FINDINGS: There is a 50% compression deformity anteriorly at L1. There is a 50% anterior compression deformity at T9. There is a 25% anterior compression deformity at T6, and T7. Osteopenia is noted. RAD/Thoracic Spine 3 Views IMPRESSION: There is a 50% compression deformity anteriorly at L1. There is a 50% anterior compression deformity at T9. There is a 25% anterior compression deformity at T6, and T7. MRI or bone scan could be helpful to determine chronicity. Reading Location: [facility] CC: Dr. Kayleigh Cooney MD Wallpaper Scraper: Signed Normal [facility] Urinalysis, Routine (Dipstic k)on 03-16-2025 BILIRUBIN URINE Negative Normal Negative [facility] Comment on above: Order Comment: CLEAN CATCH Performed By: #### M 100.0, L400.2010 #### [facility] [address] [place], [place], [id number] Clarity (U) Clear Normal Clear [facility] Comment on above: Order Comment: CLEAN CATCH Performed By: #### M 100.2199, L400.2010 #### [facility] [address] [place], [address] Color (U) Yellow Normal Yellow [facility] Comment on above: Order Comment: CLEAN CATCH Performed By: #### M 100.2199, L4 #### [facility] [address] [place], [address] GLUCOSE, UR 250 mg/dl Abnormal Normal [facility] Comment on above: Order Comment: CLEAN CATCH Performed By: #### M .2199, L4 #### [facility] [address] [place], [address] KETONE UR Negative Normal Negative [facility] Comment on above: Order Comment: CLEAN CATCH Performed By: #### M , L4 #### [facility] [address] [place], [address] LEUK ESTERASE Negative Normal Negative [facility] Comment on above: Order Comment: CLEAN CATCH Performed By: #### M , L4 #### [facility] [address] [place], [address] Nitrite Ql (U) Negative Normal Negative [facility] Comment on above: Order Comment: CLEAN CATCH Performed By: #### M , L4 #### [facility] [address] [place], [address] OCCULT BLOOD-UR 10 /ul Abnormal Negative [facility] Comment on above: Order Comment: CLEAN CATCH Performed By: #### M 100.2199, L4 #### [facility] [address] [place], [address] pH UR 6.0 Normal 5.0 - 8.0 [facility] Comment on above: Order Comment: CLEAN CATCH Performed By: #### M 100.2199, L4 #### [facility] [address] [place], [address] PROT DIPSTX 15 mg/dl Abnormal Negative [facility] Comment on above: Order Comment: CLEAN CATCH Performed By: #### M 100.2200, L400.2010 #### [facility] [address] [place], [address] SP.GR. DIPSTX 1.015 Normal 1.002-1.030 [facility] Comment on above: Order Comment: CLEAN CATCH Performed By: #### M 100.2200, L400.2010 #### [facility] [address] [place], [address] UROBILI Normal Normal Normal [facility] Comment on above: Order Comment: CLEAN CATCH Performed By: #### M 100.2200, L400.2010 #### [facility] [address] [place], [address] Urine clarityOrdered By: Sissy Cooney on 03-16-2025 Clarity (U) Clear Clear [facility] Urine color determinationOrd ered By: Kayleigh Cooney on 03-16-2025 Color (U) Yellow Yellow [facility] Urine cultureOrdered By: Sissy Cooney on 03-16-2025 Bacteria identified Cx Nom (U) Culture exhibits no growth. [facility] Urine glucose detectionOrder ed By: Kayleigh Cooney on 03-16-2025 Glucose Ql (U) 250 mg/dl High Normal [facility] Urine leukocyte esterase det ection by dipstickOrdered By: Kayleigh Cooney on 03-16-2025 Leukocyte esterase Test strip Ql (U) Negative Negative [facility] Urine pHOrdered By: Kayleigh dennis on 03-16-2025 pH (U) 6.0 [pH] 5.0 - 8.0 [facility] Urine specific gravity measu rementOrdered By: Kayleigh Cooney on 03-16-2025 Specific gravity (U) [Rel density] 1.015 1.002-1.030 [facility] Urine urobilinogen measureme ntOrdered By: Kayleigh Cooney on 03-16-2025 Urobilinogen Ql (U) Normal mg/dl Normal [facility] Radiation Oncology Visiton 0 02-09-2025 Radiation Oncology Visit [facility] [address] [place] [address] OFFICE VISIT Date of Service: 02/09/25 1026 MR#: [id number] Acct: [id number] Name: AUGUST CUEVAS Rep #: [id number] : 1950 From: Mikey Blackwell DO Age/Sex: 74/M Location: [facility] Status: Signed Intake Vital Signs 01/06/25 13:21 01/08/25 12:46 02/09/25 10:29 Height 5 ft 11 in 5 ft 11 in 5 ft 11 in Weight: 204 lb 6 oz BMI 28.5 BP 128/75 H Blood Pressure Location Lt brachial Position Sitting Respiration 16 Pulse 72 Pulse Source Monitor Temp 98.0 F Temperature Source Temporal Artery Pulse Oximetry (%) 93 Oxygen Delivery Method room air Intake Visit Reasons: 1 MONTH F/U POST RT Accompanied by: Is patient in pain?: No Allergies No Known Allergies Allergy (Verified 02/09/25 10:29) Medications ???Medication ???Instructions ???Recorded ???Confirmed ???Type atorvastatin 20 mg tablet 10 mg PO QHS 11/10/24 02/09/25 His tory coenzyme Q10 100 mg capsule (Co 100 mg PO QDAY 11/10/24 02/09/25 H istory Q-10) multivitamin 1 tab PO QAM 11/10/24 02/09/25 His tory vitamins A,C,S-oonq-xkodsh 4,296 1 cap PO BID 11/10/24 02/09/25 His tory mcg-226 mg-90 mg capsule (PreserVision AREDS) lysine 500 mg tablet (L-Lysine) 500 mg PO QDAY 11/13/24 02/09/25 H istory saw palm 160 mg-vit E 100 3 tab PO DAILY 11/13/24 02/09/25 H istory unit-selen 100 uhk-wcut-tgvujc-pyge um tablet (Prostate Health) BOWELLIA 2 cap PO DAILY 11/20/24 02/09/25 H istory RESVERITOL 2 cap PO DAILY 11/20/24 02/09/25 H istory atorvastatin 10 mg tablet 10 mg PO QHS 11/20/24 02/09/25 His tory tamsulosin 0.4 mg capsule (Flomax) 0.4 mg PO QHS #30 caps 01/06/25 02/09/25 Rx Have you fallen in the past year?: No PFSH PFSH Medical History Wears glasses Arthritis Restless legs Heartburn Asthma Non-smoker History of pain when walking History of edema History of Holter monitoring Hx of fracture of hip Hyperlipemia Prostate cancer Home Medications ???Medication ???Instructions ???Recorded ???Last Taken ???Type atorvastatin 20 mg tablet 10 mg PO QHS 11/10/24 Unknown Hist ory coenzyme Q10 100 mg capsule (Co 100 mg PO QDAY 11/10/24 Unknown Hi story Q-10) multivitamin 1 tab PO QAM 11/10/24 Unknown Hist ory vitamins A,C,B-yuay-xgugzr 4,296 1 cap PO BID 11/10/24 Unknown Hist ory mcg-226 mg-90 mg capsule (PreserVision AREDS) lysine 500 mg tablet (L-Lysine) 500 mg PO QDAY 11/13/24 Unknown Hi story saw palm 160 mg-vit E 100 3 tab PO DAILY 11/13/24 Unknown Hi story unit-selen 100 wtz-jqdz-habtwl-pyge um tablet (Prostate Health) BOWELLIA 2 cap PO DAILY 11/20/24 Unknown Hi story RESVERITOL 2 cap PO DAILY 11/20/24 Unknown Hi story atorvastatin 10 mg tablet 10 mg PO QHS 11/20/24 Unknown Hist ory tamsulosin 0.4 mg capsule (Flomax) 0.4 mg PO QHS #30 caps 01/06/25 Unknown Rx Allergy/AdvReac Type Severity Reaction Status Date / Time No Known Allergies Allergy Verified 02/09/25 10:29 Surgical History Hx of right cataract extraction Hx of left cataract extraction Hx of colonoscopy H/O prostate biopsy Social History Smoking Status: Never smoker alcohol intake: never Diagnosis: August Cuevas is a 74 year-old male diagnosed with low risk prostate cancer (GS 3+3, PSA 5.36, cT1c) TRUS guided prostate biopsy (03/13/2022), now with evidence of progression while on active surveillance with MRI guided biopsy demonstrating Ashmore 3+4 adenocarcinoma and PSA has risen to 9.69. From 12/29/2024 ??? 01/08/2025 he received prostate SBRT. History of Present Illness: 03/13/2022: Patient completed TRUS Prostate biopsy.??? Pathology demonstrated Ashmore 3+3 adenocarcinoma involving about 10% of 2/2 cores in the right prostate base, and about 30% of 1/2 cores in the left prostate apex.??? All remaining biopsies were negative. 09/15/2024: Patient completed MRI prostate with and without contrast.??? This demonstrated a 5.56 mm low signal nodule in the far anterior and medial aspect of the left peripheral zone with diffuse bright diffusion weighted signal in the nodule and surrounding left peripheral zone and associated ADC dark signal with some enhancement on the postcontrast study.??? This could represent poorly vascularized or necrotic tumor or nonspecific intermediate nodule.??? PI-RADS Category 3 10/06/2024: Patient completed MRI guided prostate biopsy.??? This demonstrated Rob 3+4 adenocarcinoma involving about 40% of 1/2 cores in the right prostate base and the left prostate a pex core biopsy was negative. From (more content not included)... Normal [facility] Radiation Oncology Visiton 0 01-08-2025 Radiation Oncology Visit [facility] [address] [place], [place] [address] [place] [address] OFFICE VISIT Date of Service: 01/08/25 1322 MR#: [id number] Acct: [id number] Name: AUGUST CUEVAS Rep #: [id number] : 1950 From: Mikey Blackwell DO Age/Sex: 74/M Location: [facility] [place] Status: Signed End of Treatment Summary: Diagnosis: August Cuevas is a 74 year-old male diagnosed with low risk prostate cancer (GS 3+3, PSA 5.36, cT1c) TRUS guided prostate biopsy (03/13/2022), now with evidence of progression while on active surveillance with MRI guided biopsy demonstrating Rob 3+4 adenocarcinoma and PSA has risen to 9.69. Oncologic History: 03/13/2022: Patient completed TRUS Prostate biopsy.??? Pathology demonstrated Ashmore 3+3 adenocarcinoma involving about 10% of 2/2 cores in the right prostate base, and about 30% of 1/2 cores in the left prostate apex.??? All remaining biopsies were negative. 09/15/2024: Patient completed MRI prostate with and without contrast.??? This demonstrated a 5.56 mm low signal nodule in the far anterior and medial aspect of the left peripheral zone with diffuse bright diffusion weighted signal in the nodule and surrounding left peripheral zone and associated ADC dark signal with some enhancement on the postcontrast study.??? This could represent poorly vascularized or necrotic tumor or nonspecific intermediate nodule.??? PI-RADS Category 3 10/06/2024: Patient completed MRI guided prostate biopsy.??? This demonstrated Rob 3+4 adenocarcinoma involving about 40% of 1/2 cores in the right prostate base and the left prostate apex core biopsy was negative. Radiation Treatment History: None The patient completed a course of external beam radiotherapy in our department. This treatment was delivered for curative intent. Treatment was given according to the following parameters: AUGUST CUEVAS received prostate SBRT consisting of 3625 cGy delivered in 5 fractions. He was treated with a VMAT plan using 6 FFF MV photons. The patient did not receive concurrent chemotherapy. Date of First Treatment: 12/29/2024 Date of Last Treatment: 01/08/2025 Total Elapsed Days (including weekend and holidays): 10 Missed Treatments: none Response and Tolerance: The patient tolerated this course of radiotherapy well overall. The following radiation related toxicities developed during the course of radiation therapy: * Grade 1 worsening in urinary symptoms, treated with flomax Total weight change during therapy: N/A Disposition: The patient tolerated the planned course of radiation therapy well without unexpected toxicity in an appropriate time course. I reviewed management of potential toxicities and discussed expected timing for toxicity resolution. I will have AUGUST follow-up in one month for a routine visit. AUGUST will maintain follow up with all other providers. AUGUST was instructed to call with any further questions or concerns in the interim. If we can provide any further information on this patient's course of care, please do not hesitate to ask. We would like to thank you very much for allowing us to participate in the care of this patient. Sincerely, Mikey Blackwell DO, MS [employer], Department of Radiation Oncology [facility] 01/08/25 1325 Date Mikey Blackwell DO Cosigner Signature: Date (if applicable) CC: Dr. Kayleigh Cooney MD; Dr. Nuno Mauricio MD Normal [facility] Radiation Oncology Visit [facility] [address] [address] OFFICE VISIT Date of Service: 01/08/25 1245 MR#: [id number] Acct: [id number] Name: AUGUST CUEVAS Gina Rep #: [id number] : 1950 From: Mikey Blackwell DO Age/Sex: 74/M Location: [facility] Status: Signed Intake Vital Signs 01/06/25 13:21 Height 5 ft 11 in Intake Visit Reasons: Amb Documentation Allergies No Known Allergies Allergy (Verified 01/06/25 13:01) Have you fallen in the past year?: No PFSH PFSH Medical History Wears glasses Arthritis Restless legs Heartburn Asthma Non-smoker History of pain when walking History of edema History of Holter monitoring Hx of fracture of hip Hyperlipemia Prostate cancer Allergy/AdvReac Type Severity Reaction Status Date / Time No Known Allergies Allergy Verified 01/06/25 13:01 Surgical History Hx of right cataract extraction Hx of left cataract extraction Hx of colonoscopy H/O prostate biopsy Social History (Reviewed 01/06/25 @ 13:01 by Dorothy Tao Smoking Status: Never smoker alcohol intake: never Stereotactic Body Radiation Therapy Procedure - Prostate: DATE OF PROCEDURE: 01/08/2025 RADIATION ONCOLOGIST: Mikey Blackwell D.O., M.S. ASSISTANTS: Radiation Physicist PRE-PROCEDURE DIAGNOSIS(ES): Intermediate risk prostate cancer POST-PROCEDURE DIAGNOSIS(ES): Intermediate risk prostate cancer INDICATIONS FOR PROCEDURE: The patient has clinically localized prostate cancer and has chosen to proceed with definitive Stereotactic Body Radiation Therapy (SBRT). PROCEDURE PERFORMED: Stereotactic body radiation therapy to the prostate CONSENT: Informed consent was obtained prior to the procedure. Procedure risks, benefits, alternatives and expected outcomes were discussed with the patient. All options have been reviewed and consent had been obtained prior to the procedure. Consent(s) were scanned into the electronic medical record. UNIVERSAL PROTOCOL / TIMEOUT: Pre-procedure verification is complete: patient verified and consents confirmed, procedure site was identified, timeout was called before the start of the procedure. ANESTHESIA: None RADIATION DOSE GIVEN: 725 cGy FRACTION: 5 of 5 CUMULATIVE DOSE: 3625 cGy PLANNED TOTAL DOSE: 3625 cGy DETAILS OF PROCEDURE: August Cuevas is a 74 year-old male who presented to our clinic today for the fifth fraction of stereotactic body radiation therapy for clinically localized prostate cancer. The patient reports no interval symptoms or problems since the last evaluation in our department. The patient was aligned in the vac bag on the treatment table. The therapists completed patient positioning. The treatment team then exited the treatment room. After verification of treatment parameters, a cone beam CT scan was obtained and aligned to fiducials. After accurate localization, the treatment proceeded. Treatment was delivered with multiarc VMAT radiation therapy utilizing 6 FFF MV beams. A dose of 725 cGy was delivered. The patient tolerated the procedure well. There were no acute complications, no blood loss, and no specimens were removed. CONDITION: The patient tolerated the procedure well and was in stable condition. ATTESTATION: I was present for all critical portions of the procedure including time out, CBCT and treatment delivery. PLAN: The patient will continue with stereotactic body radiation therapy that will be given 2-3 times per week. A total of 3625 cGy in 5 fractions is planned. Mikey Blackwell DO MS Browning Processor, Department of Radiation Oncology [facility] Coding Level of Care Code Attention Harjit Comment SBRT treatment 01/08/25 1246 Date Mikey Blackwell DO Chineduigner Signature: Date (if applicable) CC: Normal [facility] Radiation Oncology Visiton 0 01-06-2025 Radiation Oncology Visit [facility] [address] [place] [address] OFFICE VISIT Date of Service: 01/06/25 1320 MR#: [id number] Acct: [id number] Name: CUEVASAUGUST Rep #: [id number] : 1950 From: Mikey Blackwell DO Age/Sex: 74/M Location: [facility] Status: Signed Intake Vital Signs 11/27/24 09:47 01/06/25 13:01 Height 5 ft 11 in 5 ft 11 in Weight: 200 lb 8 oz BMI 27.9 BP 125/80 H Blood Pressure Location Lt brachial Position Sitting Respiration 18 Pulse 75 Pulse Source Monitor Temp 98.2 F Temperature Source Temporal Artery Pulse Oximetry (%) 95 Oxygen Delivery Method room air Intake Visit Reasons: OTV Allergies No Known Allergies Allergy (Verified 01/06/25 13:01) Medications ???Medication ???Instructions ???Recorded ???Confirmed ???Type atorvastatin 20 mg tablet 10 mg PO QHS 11/10/24 01/06/25 His tory coenzyme Q10 100 mg capsule (Co 100 mg PO QDAY 11/10/24 01/06/25 H istory Q-10) multivitamin 1 tab PO QAM 11/10/24 01/06/25 His tory vitamins A,C,Z-xdns-tmgnaw 4,296 1 cap PO BID 11/10/24 01/06/25 His tory mcg-226 mg-90 mg capsule (PreserVision AREDS) lysine 500 mg tablet (L-Lysine) 500 mg PO QDAY 11/13/24 01/06/25 H istory saw palm 160 mg-vit E 100 3 tab PO DAILY 11/13/24 01/06/25 H istory unit-selen 100 uop-etln-ijbcxb-pyge um tablet (Prostate Health) BOWELLIA 2 cap PO DAILY 11/20/24 01/06/25 H istory RESVERITOL 2 cap PO DAILY 11/20/24 01/06/25 H istory atorvastatin 10 mg tablet 10 mg PO QHS 11/20/24 01/06/25 His tory tamsulosin 0.4 mg capsule (Flomax) 0.4 mg PO QHS #30 caps 01/06/25 01/06/25 Rx Have you fallen in the past year?: No PFSH PFSH Medical History Wears glasses Arthritis Restless legs Heartburn Asthma Non-smoker History of pain when walking History of edema History of Holter monitoring Hx of fracture of hip Hyperlipemia Prostate cancer Home Medications ???Medication ???Instructions ???Recorded ???Last Taken ???Type atorvastatin 20 mg tablet 10 mg PO QHS 11/10/24 Unknown Hist ory coenzyme Q10 100 mg capsule (Co 100 mg PO QDAY 11/10/24 Unknown Hi story Q-10) multivitamin 1 tab PO QAM 11/10/24 Unknown Hist ory vitamins A,C,T-pmep-psafrb 4,296 1 cap PO BID 11/10/24 Unknown Hist ory mcg-226 mg-90 mg capsule (PreserVision AREDS) lysine 500 mg tablet (L-Lysine) 500 mg PO QDAY 11/13/24 Unknown Hi story saw palm 160 mg-vit E 100 3 tab PO DAILY 11/13/24 Unknown Hi story unit-selen 100 wtk-kpbh-adzaam-pyge um tablet (Prostate Health) BOWELLIA 2 cap PO DAILY 11/20/24 Unknown Hi story RESVERITOL 2 cap PO DAILY 11/20/24 Unknown Hi story atorvastatin 10 mg tablet 10 mg PO QHS 11/20/24 Unknown Hist ory tamsulosin 0.4 mg capsule (Flomax) 0.4 mg PO QHS #30 caps 01/06/25 Unknown Rx Allergy/AdvReac Type Severity Reaction Status Date / Time No Known Allergies Allergy Verified 01/06/25 13:01 Surgical History Hx of right cataract extraction Hx of left cataract extraction Hx of colonoscopy H/O prostate biopsy Social History Smoking Status: Never smoker alcohol intake: never Stereotactic Body Radiation Therapy Procedure - Prostate: DATE OF PROCEDURE: 01/06/2025 RADIATION ONCOLOGIST: Mikey Blackwell D.O., M.S. ASSISTANTS: Radiation Physicist PRE-PROCEDURE DIAGNOSIS(ES): Intermediate risk prostate cancer POST-PROCEDURE DIAGNOSIS(ES): Intermediate risk prostate cancer INDICATIONS FOR PROCEDURE: The patient has clinically localized prostate cancer and has chosen to proceed with definitive Stereotactic Body Radiation Therapy (SBRT). PROCEDURE PERFORMED: Stereotactic body radiation therapy to the prostate CONSENT: Informed consent was obtained prior to the procedure. Procedure risks, benefits, alternatives and expected outcomes were discussed with the patient. All options have been reviewed and consent had been obtained prior to the procedure. Consent(s) were scanned into the electronic medical record. UNIVERSAL PROTOCOL / TIMEOUT: Pre-procedure verification is complete: patient verified and consents confirmed, procedure site was identified, timeout was called before the start of the procedure. ANESTHESIA: None RADIATION DOSE GIVEN: 725 cGy FRACTION: 4 of 5 CUMULATIVE DOSE: 2900 cGy PLANNED TOTAL DOSE: 3625 cGy DETAILS OF PROCEDURE: August Cuevas is a 74 year-old male who presented to our clinic today for the fourth fraction of stereotactic body radiation therapy for clinically localized prostate cancer. The patient reports no interval symptoms or problems since the last e (more content not included)... Normal [facility] Radiation Oncology Visit [facility] [address] [place] [address] OFFICE VISIT Date of Service: 01/06/25 1256 MR#: [id number] Acct: [id number] Name: AUGUST CUEVAS Rep #: [id number] : 1950 From: Mikey Blackwell DO Age/Sex: 74/M Location: [facility] [place] Status: Signed Intake Vital Signs 11/27/24 09:47 03/12/25 13:01 Height 5 ft 11 in 5 ft 11 in Weight: 200 lb 8 oz BMI 27.9 BP 125/80 H Blood Pressure Location Lt brachial Position Sitting Respiration 18 Pulse 75 Pulse Source Monitor Temp 98.2 F Temperature Source Temporal Artery Pulse Oximetry (%) 95 Oxygen Delivery Method room air Intake Visit Reasons: OTV Is patient in pain?: No Allergies No Known Allergies Allergy (Verified 01/06/25 13:01) Medications ???Medication ???Instructions ???Recorded ???Confirmed ???Type atorvastatin 20 mg tablet 10 mg PO QHS 11/10/24 01/06/25 His tory coenzyme Q10 100 mg capsule (Co 100 mg PO QDAY 11/10/24 01/06/25 H istory Q-10) multivitamin 1 tab PO QAM 11/10/24 01/06/25 His tory vitamins A,C,H-mfel-anngho 4,296 1 cap PO BID 11/10/24 01/06/25 His tory mcg-226 mg-90 mg capsule (PreserVision AREDS) lysine 500 mg tablet (L-Lysine) 500 mg PO QDAY 11/13/24 01/06/25 H istory saw palm 160 mg-vit E 100 3 tab PO DAILY 11/13/24 01/06/25 H istory unit-selen 100 lpb-euet-qaowea-pyge um tablet (Prostate Health) BOWELLIA 2 cap PO DAILY 11/20/24 01/06/25 H istory RESVERITOL 2 cap PO DAILY 11/20/24 01/06/25 H istory atorvastatin 10 mg tablet 10 mg PO QHS 11/20/24 01/06/25 His tory tamsulosin 0.4 mg capsule (Flomax) 0.4 mg PO QHS #30 caps 01/06/25 01/06/25 Rx Have you fallen in the past year?: Yes PFSH [facility] Medical History Wears glasses Arthritis Restless legs Heartburn Asthma Non-smoker History of pain when walking History of edema History of Holter monitoring Hx of fracture of hip Hyperlipemia Prostate cancer Home Medications ???Medication ???Instructions ???Recorded ???Last Taken ???Type atorvastatin 20 mg tablet 10 mg PO QHS 11/10/24 Unknown Hist ory coenzyme Q10 100 mg capsule (Co 100 mg PO QDAY 11/10/24 Unknown Hi story Q-10) multivitamin 1 tab PO QAM 11/10/24 Unknown Hist ory vitamins A,C,F-bgvl-khdwau 4,296 1 cap PO BID 11/10/24 Unknown Hist ory mcg-226 mg-90 mg capsule (PreserVision AREDS) lysine 500 mg tablet (L-Lysine) 500 mg PO QDAY 11/13/24 Unknown Hi story saw palm 160 mg-vit E 100 3 tab PO DAILY 11/13/24 Unknown Hi story unit-selen 100 xus-bymh-inedmp-pyge um tablet (Pro[employer]) BOWELLIA 2 cap PO DAILY 11/20/24 Unknown Hi story RESVERITOL 2 cap PO DAILY 11/20/24 Unknown Hi story atorvastatin 10 mg tablet 10 mg PO QHS 11/20/24 Unknown Hist ory tamsulosin 0.4 mg capsule (Flomax) 0.4 mg PO QHS #30 caps 01/06/25 Unknown Rx Allergy/AdvReac Type Severity Reaction Status Date / Time No Known Allergies Allergy Verified 01/06/25 13:01 Surgical History Hx of right cataract extraction Hx of left cataract extraction Hx of colonoscopy H/O prostate biopsy Social History Smoking Status: Never smoker alcohol intake: never Diagnosis: August Cuevas is a 74 year-old male diagnosed with low risk prostate cancer (GS 3+3, PSA 5.36, cT1c) TRUS guided prostate biopsy (03/13/2022), now with evidence of progression while on active surveillance with MRI guided biopsy demonstrating Ashmore 3+4 adenocarcinoma and PSA has risen to 9.69. Plan: Plan was made to complete prostate SBRT consisting of 3625 cGy delivered in 5 fractions. Treatment Data: Treatment Site: Prostate Current total dose/Total dose planned: 2900 cGy / 3625 cGy Fraction number: 4 Chemotherapy: none Subjective: Pain: 0 / 10 Fatigue: none Skin: no erythema, rash, desquamation GI: no diarrhea/constipatio n. No rectal pain or bleeding. No bloating or increased gas : mild increase in weak stream, otherwise no increase urinary symptoms. No dysuria or hematuria Objective: Weight: 200 lbs Physical Exam: Gen: NAD Skin: no erythema, rash, desquamation. Assessment Plan Assessment/Plan (1) Cancer of prostate with intermediate recurrence risk (stage T2b-c or Ashmore 7 or PSA 10-20): PLAN: Plan Assessment: Tolerating treatment well overall.??? I reviewed and approved all treatment associated imaging. increase weak stream, planning Flomax Plan: Continue treatment as planned.??? I have reviewed potential treatment associated toxicities as well as timing for resolution and management. Skin: Skin care reviewed, continue lotion p (more content not included)... Normal [facility] Radiation Oncology Visiton 0 01-04-2025 Radiation Oncology Visit [facility] [address] [place] [address] OFFICE VISIT Date of Service: 01/04/25 1258 MR#: [id number] Acct: [id number] Name: AUGUST CUEVAS Gina Rep #: [id number] : 1950 From: Mikey Blackwell DO Age/Sex: 74/M Location: [facility] Status: Signed Intake Vital Signs 12/31/24 12:59 Height 5 ft 11 in Intake Visit Reasons: Amb Documentation Allergies No Known Allergies Allergy (Verified 11/27/24 09:45) Have you fallen in the past year?: No PFSH PFSH Medical History Wears glasses Arthritis Restless legs Heartburn Asthma Non-smoker History of pain when walking History of edema History of Holter monitoring Hx of fracture of hip Hyperlipemia Prostate cancer Allergy/AdvReac Type Severity Reaction Status Date / Time No Known Allergies Allergy Verified 11/27/24 09:45 Surgical History Hx of right cataract extraction Hx of left cataract extraction Hx of colonoscopy H/O prostate biopsy Social History Smoking Status: Never smoker alcohol intake: never Stereotactic Body Radiation Therapy Procedure - Prostate: DATE OF PROCEDURE: 01/04/2025 RADIATION ONCOLOGIST: Mikey Blackwell D.O., M.S. ASSISTANTS: Radiation Physicist PRE-PROCEDURE DIAGNOSIS(ES): Intermediate risk prostate cancer POST-PROCEDURE DIAGNOSIS(ES): Intermediate risk prostate cancer INDICATIONS FOR PROCEDURE: The patient has clinically localized prostate cancer and has chosen to proceed with definitive Stereotactic Body Radiation Therapy (SBRT). PROCEDURE PERFORMED: Stereotactic body radiation therapy to the prostate CONSENT: Informed consent was obtained prior to the procedure. Procedure risks, benefits, alternatives and expected outcomes were discussed with the patient. All options have been reviewed and consent had been obtained prior to the procedure. Consent(s) were scanned into the electronic medical record. UNIVERSAL PROTOCOL / TIMEOUT: Pre-procedure verification is complete: patient verified and consents confirmed, procedure site was identified, timeout was called before the start of the procedure. ANESTHESIA: None RADIATION DOSE GIVEN: 725 cGy FRACTION: 3 of 5 CUMULATIVE DOSE: 2175 cGy PLANNED TOTAL DOSE: 3625 cGy DETAILS OF PROCEDURE: August Cuevas is a 74 year-old male who presented to our clinic today for the third fraction of stereotactic body radiation therapy for clinically localized prostate cancer. The patient reports no interval symptoms or problems since the last evaluation in our department. The patient was aligned in the vac bag on the treatment table. The therapists completed patient positioning. The treatment team then exited the treatment room. After verification of treatment parameters, a cone beam CT scan was obtained and aligned to fiducials. After accurate localization, the treatment proceeded. Treatment was delivered with multiarc VMAT radiation therapy utilizing 6 FFF MV beams. A dose of 725 cGy was delivered. The patient tolerated the procedure well. There were no acute complications, no blood loss, and no specimens were removed. CONDITION: The patient tolerated the procedure well and was in stable condition. ATTESTATION: I was present for all critical portions of the procedure including time out, CBCT and treatment delivery. PLAN: The patient will continue with stereotactic body radiation therapy that will be given 2-3 times per week. A total of 3625 cGy in 5 fractions is planned. Mikey Blackwell DO, Browning Processor, Department of Radiation Oncology [facility] Coding Level of Care Code Attention Blueprint Assembler Comment SBRT treatment 01/04/25 1259 Date Mikey Rosalva DO Kamille Signature: Date (if applicable) CC: Normal [facility] Radiation Oncology Visiton 0 12-31-2024 Radiation Oncology Visit [facility] [address] [place] [address] OFFICE VISIT Date of Service: 12/31/24 1259 MR#: [id number] Acct: [id number] Name: AUGUST CUEVAS Rep #: [id number] : 1950 From: Mikey Blackwell DO Age/Sex: 74/M Location: [facility] Status: Signed Intake Vital Signs 12/29/24 12:51 Height 5 ft 11 in Intake Visit Reasons: Amb Documentation Allergies No Known Allergies Allergy (Verified 11/27/24 09:45) Have you fallen in the past year?: No PFSH PFSH Medical History Wears glasses Arthritis Restless legs Heartburn Asthma Non-smoker History of pain when walking History of edema History of Holter monitoring Hx of fracture of hip Hyperlipemia Prostate cancer Allergy/AdvReac Type Severity Reaction Status Date / Time No Known Allergies Allergy Verified 11/27/24 09:45 Surgical History Hx of right cataract extraction Hx of left cataract extraction Hx of colonoscopy H/O prostate biopsy Social History Smoking Status: Never smoker alcohol intake: never Stereotactic Body Radiation Therapy Procedure - Prostate: DATE OF PROCEDURE: 12/31/2024 RADIATION ONCOLOGIST: Mikey Blackwell D.O., M.S. ASSISTANTS: Radiation Physicist PRE-PROCEDURE DIAGNOSIS(ES): Intermediate risk prostate cancer POST-PROCEDURE DIAGNOSIS(ES): Intermediate risk prostate cancer INDICATIONS FOR PROCEDURE: The patient has clinically localized prostate cancer and has chosen to proceed with definitive Stereotactic Body Radiation Therapy (SBRT). PROCEDURE PERFORMED: Stereotactic body radiation therapy to the prostate CONSENT: Informed consent was obtained prior to the procedure. Procedure risks, benefits, alternatives and expected outcomes were discussed with the patient. All options have been reviewed and consent had been obtained prior to the procedure. Consent(s) were scanned into the electronic medical record. UNIVERSAL PROTOCOL / TIMEOUT: Pre-procedure verification is complete: patient verified and consents confirmed, procedure site was identified, timeout was called before the start of the procedure. ANESTHESIA: None RADIATION DOSE GIVEN: 725 cGy FRACTION: 2 of 5 CUMULATIVE DOSE: 1450 cGy PLANNED TOTAL DOSE: 3625 cGy DETAILS OF PROCEDURE: August Cuevas is a 74 year-old male who presented to our clinic today for the second fraction of stereotactic body radiation therapy for clinically localized prostate cancer. The patient reports no interval symptoms or problems since the last evaluation in our department. The patient was aligned in the vac bag on the treatment table. The therapists completed patient positioning. The treatment team then exited the treatment room. After verification of treatment parameters, a cone beam CT scan was obtained and aligned to fiducials. After accurate localization, the treatment proceeded. Treatment was delivered with multiarc VMAT radiation therapy utilizing 6 FFF MV beams. A dose of 725 cGy was delivered. The patient tolerated the procedure well. There were no acute complications, no blood loss, and no specimens were removed. CONDITION: The patient tolerated the procedure well and was in stable condition. ATTESTATION: I was present for all critical portions of the procedure including time out, CBCT and treatment delivery. PLAN: The patient will continue with stereotactic body radiation therapy that will be given 2-3 times per week. A total of 3625 cGy in 5 fractions is planned. Mikey Blackwell DO, MS Browning Processor, Department of Radiation Oncology [facility] Coding Level of Care Code Attention Harjit Comment SBRT treatment 12/31/24 1259 Date Mikey Arangoignchris Signature: Date (if applicable) CC: Normal [facility] Radiation Oncology Visiton 0 12-29-2024 Radiation Oncology Visit [facility] [address] [address] OFFICE VISIT Date of Service: 12/29/24 1250 MR#: [id number] Acct: [id number] Name: AUGUST CUEVAS Rep #: [id number] : 1950 From: Mikey Blackwell DO Age/Sex: 74/M Location: [facility] [place] Status: Signed Intake Vital Signs 11/27/24 09:47 Height 5 ft 11 in Intake Visit Reasons: Amb Documentation Allergies No Known Allergies Allergy (Verified 11/27/24 09:45) Have you fallen in the past year?: No PFSH PFSH Medical History Wears glasses Arthritis Restless legs Heartburn Asthma Non-smoker History of pain when walking History of edema History of Holter monitoring Hx of fracture of hip Hyperlipemia Prostate cancer Allergy/AdvReac Type Severity Reaction Status Date / Time No Known Allergies Allergy Verified 11/27/24 09:45 Surgical History Hx of right cataract extraction Hx of left cataract extraction Hx of colonoscopy H/O prostate biopsy Social History Smoking Status: Never smoker alcohol intake: never Stereotactic Body Radiation Therapy Procedure - Prostate: DATE OF PROCEDURE: 12/29/2024 RADIATION ONCOLOGIST: Mikey Blackwell D.O., M.S. ASSISTANTS: Radiation Physicist PRE-PROCEDURE DIAGNOSIS(ES): Intermediate risk prostate cancer POST-PROCEDURE DIAGNOSIS(ES): Intermediate risk prostate cancer INDICATIONS FOR PROCEDURE: The patient has clinically localized prostate cancer and has chosen to proceed with definitive Stereotactic Body Radiation Therapy (SBRT). PROCEDURE PERFORMED: Stereotactic body radiation therapy to the prostate CONSENT: Informed consent was obtained prior to the procedure. Procedure risks, benefits, alternatives and expected outcomes were discussed with the patient. All options have been reviewed and consent had been obtained prior to the procedure. Consent(s) were scanned into the electronic medical record. UNIVERSAL PROTOCOL / TIMEOUT: Pre-procedure verification is complete: patient verified and consents confirmed, procedure site was identified, timeout was called before the start of the procedure. ANESTHESIA: None RADIATION DOSE GIVEN: 725 cGy FRACTION: 1 of 5 CUMULATIVE DOSE: 725 cGy PLANNED TOTAL DOSE: 3625 cGy DETAILS OF PROCEDURE: August Cuevas is a 74 year-old male who presented to our clinic today for the first fraction of stereotactic body radiation therapy for clinically localized prostate cancer. The patient reports no interval symptoms or problems since the last evaluation in our department. The patient was aligned in the vac bag on the treatment table. The therapists completed patient positioning. The treatment team then exited the treatment room. After verification of treatment parameters, a cone beam CT scan was obtained and aligned to fiducials. After accurate localization, the treatment proceeded. Treatment was delivered with multiarc VMAT radiation therapy utilizing 6 FFF MV beams. A dose of 725 cGy was delivered. The patient tolerated the procedure well. There were no acute complications, no blood loss, and no specimens were removed. CONDITION: The patient tolerated the procedure well and was in stable condition. ATTESTATION: I was present for all critical portions of the procedure including time out, CBCT and treatment delivery. PLAN: The patient will continue with stereotactic body radiation therapy that will be given 2-3 times per week. A total of 3625 cGy in 5 fractions is planned. Mikey Blackwell DO, MS Browning Processor, Department of Radiation Oncology [facility] Coding Level of Care Code Attention Harjit Comment SBRT treatment 12/29/24 1251 Date Mikey Amaro Signature: Date (if applicable) CC: Normal [facility] CT Therapy Plan / No Readon 12-07-2024 CT Therapy Plan / No Read [facility] Imaging Services [address] [place], [place] [id number] CT Therapy Plan / No Read MR#: [id number] Acct: [id number] Name: AUGUST CUEVAS Rep #: [id number] : 1950 M 74 From: Davie rosenthal MD PCP: Dr. Kayleigh Cooney MD Status: REG RCR Study: CT Therapy Plan / No Read Date of Exam: Exam# [id number] Ordering Dr: Mkiey Blackwell DO EXAM: CT THERAPY PLAN / NO READ CLINICAL HISTORY: Radiation treatment planning. COMPARISON: None. TECHNIQUE: Radiation treatment planning. FINDINGS: Radiation treatment planning. CT/CT Therapy Plan / No Read IMPRESSION: Radiation treatment planning. Reading Location: [id number] CC: Dr. Kayleigh Cooney MD; Dr. Mikey Blackwell DO Wallpaper Scraper: Signed Normal [facility] Pelvis W/WO Contraston 12-07 Pelvis W/WO Contrast [facility] Imaging Services [address] [place], [place] [address] Pelvis W/WO Contrast MR#: [id number] Acct: [id number] Name: AUGUST CUEVAS Rep #: [id number] : 1950 M 74 From: Lavelle Crawford DO PCP: Dr. Kayleigh Cooney MD Status: REG CLI Study: Pelvis W/WO Contrast Date of Exam: 12/07/24 Exam# [id number] Ordering Dr: Mikey Blackwell DO PROCEDURE: PELVIS W/WO CONTRAST REASON FOR EXAM: Known prostate cancer. Elevated PSA. TECHNIQUE: Multiplanar, multisequence MRI of the prostate was performed before and following intravenous gadolinium-based contrast. Axial, coronal, and sagittal high-resolution T2-weighted images, axial T1-weighted images, diffusion- weighted images with high B value, and dynamic postcontrast fat saturated T1-weighted images were performed. CONTRAST: 17 mL Clariscan intravenous COMPARISON: Prostate MRI September 15, 2024. FINDINGS: Prostate Volume: 52.3 mL (prostate measures 5.1 cm in transverse dimension by 4 cm in AP dimension by 4.9 cm craniocaudally) Peripheral Zone: In the mid gland, right posterolateral peripheral zone is a 1 cm area of T2 hypointensity some of which exhibits increased DWI signal and corresponding hypointensity on ADC map. This is considered a PI-RADS 4 lesion and retrospectively similar to August 2024. The previously described left anterior peripheral zone lesion is not apparent on this study. Transitional Zone: BPH. Seminal vesicles: New spacer gel is present between the posterior prostate and seminal vesicle margins and the rectum, thickness of the gel is approximately 7 mm in AP dimension. Seminal vesicles are unremarkable. Neurovascular bundles: Normal and symmetric. Lymph nodes: No lymphadenopathy is identified. Bone marrow: No suspicious lesions. Left hip susceptibility artifact from hardware. Miscellaneous: Tiny fat containing left inguinal hernia. Sigmoid diverticulosis. MRI/Pelvis W/WO Contrast IMPRESSION: PI-RADS 4 lesion in the posterolateral right peripheral zone at the midgland, retrospectively similar to August 2024. Previously described left anterior peripheral zone lesion is not identified on this exam. New spacer gel between the prostate/seminal vesicles and rectum. Reading Location: [facility] CC: Dr. Kayleigh Cooney MD; Dr. Mikey Blackwell DO Wallpaper Scraper: Signed Normal [facility] Discharge Instructionon 10-30 Discharge Instruction [facility] Medical Records Department [address] [place] [address] Instructions for Home/Discharge Instructions 11/27/24 1050 MR#: [id number] Acct: [id number] Name: AUGUST CUEVAS Rep #: [id number] : 1950 74 From: Nuno Mauricio MD PCP: Dr. Kayleigh Cooney MD Status:REG UTC Discharge Instructions Diet Discharge Diet: No restrictions DC O2, CPAP, BIPAP needs Home O2 Discharge instructions: No Dressing / Incision Discharge Activity: Return to Normal Activity and May Not Drive (while taking narcotic pain medications.) Dressing / Incision Call your doctor if you observe: Fever of 101 or Higher Follow Up Care Please Follow Up With: Nuno Mauricio MD When: Call [phone] for an appointment Test Results: Test results from this visit will be discussed in further detail at your follow-up appointment, if applicable. Discharge Plan Admission Primary Reason for Your Visit: gold markers and spacer gel Attending Provider: Nuno Mauricio Primary Care Provider: Kayleigh Cooney Instructions Print Language: Pashto Discharge Orders/Prescriptions Prescriptions: Continued lysine [L-Lysine] 500 mg tablet 500 mg PO QDAY Prostate Health 160-100-100 mg-unit-mcg tablet 3 tab PO DAILY atorvastatin 20 mg tablet 10 mg PO QHS coenzyme Q10 [Co Q-10] 100 mg capsule 100 mg PO QDAY multivitamin Tablet 1 tab PO QAM PreserVision AREDS 4,296 mcg-226 mg-90 mg capsule 1 cap PO BID atorvastatin 10 mg tablet 10 mg PO QHS RESVERITOL 2 cap PO DAILY BOWELLIA 2 cap PO DAILY Referrals / Follow Up: Kayleigh Cooney MD [Primary Care Provider] - Nuno Mauricio MD [Med Staff - Active Staff] - Disposition Disposition (needs filled in before D/C Order can be placed): Home, Self Care 11/27/24 1050 Nuno Mauricio MD CC: Dr. Kayleigh Cooney MD Signed [facility] MR/POSTOP.[facility] 11-27-2024 MR/POSTOP.[facility] Medical Records Department [address] [place] [address] Anesthesia Postop Eval I 11/27/24 1118 MR#: [id number] Acct: [id number] Name: AUGUST CUEVAS Rep #: [id number] : 1950 74 From: Humberto Salas CRNA PCP: Dr. Kayleigh Cooney MD Status:REG SDC Y Race: C Location: [place] [address] Anesthesia: Postop Eval I Current Vital Signs Temperature: 36 F Pulse Rate: 80 Blood Pressure: 124/80 Respiratory Rate: 16 Pulse Ox: 98 Oxygen Delivery Method: Room Air Assessment Airway patent: Yes Spontaneous unlabored respirations: Yes Mental status: Awake and Calm nausea: No Vomiting: No Anesthesia Complication: No Fluid Hydration Crystalloid volume administer (ml): 400 Total IV fluid infused: 400 Progress Note Anesthesia document: Postop Eval 1 completed: Yes 11/27/24 1119 Date Humberto Click VP TREASURER Cosigner Signature: Date CC: Signed Normal [facility] MR/SMOBLDUS7pl 11-27-2024 [facility] Medical Records Department [address] [facility] [address] Anesthesia Postop Eval II 11/27/24 1212 MR#: [id number] Acct: [id number] Name: AUGUST CUEVAS Gina Rep #: [id number] : 1950 74 From: Saul Castañeda MD PCP: Dr. Kayleigh Cooney MD Status:REG [facility] [place] Race: C Location: [place] [address] Anesthesia Postop Eval I Sum Postop Eval Completion status Anesthesia document: Postop Eval 1 completed: Yes Anesthesia Postop Eval I Summary Anesthesia Postop Eval I Summary: Anesthesia Postop Eval I: Assessment Summary Airway patent Yes 11/27/24 11:19 VP TREASURER.JCLI Spontaneous unlabored Yes 11/27/24 11:19 VP TREASURER.BOB respirations Mental status Awake,Calm 11/27/24 11:19 VP TREASURER.JCLI nausea No 11/27/24 11:19 VP TREASURER.JCLI Vomiting No 11/27/24 11:19 VP TREASURER.JCLI Anesthesia Postop Eval I: Fluid Summary Crystalloid volume administer 400 11/27/24 11:19 VP TREASURER.JCLI (ml) Colloids volume administered ( ml) Blood Product volume administered (ml) Total IV fluid infused 400 11/27/24 11:19 VP TREASURER.JCLI Anesthesia Postop Eval I: Summary Notes Anesthesia Complication No 11/27/24 11:19 VP TREASURER.JCLI Anesthesia Complication Comment: Post-operative progress note Anesthesia: Postop Eval II Evaluation Mental status: Awake Pain Level: 0 nausea: No Vomiting: No 11/27/24 1212 Date Saul Simental Signature: Date CC: Signed Normal [facility] Operative Reporton 5 Operative Report [facility] Medical Records Department [address] [place] [address] Operative Report 11/27/24 1107 MR#: [id number] Acct: [id number] Name: AUGUST CUEVAS Rep #: [id number] : 1950 74 From: Nuno Mauricio MD PCP: Dr. Kayleigh Cooney MD Status:[facility] Location: [place] [address] Operative Report (Standard) Operative Information Date of Procedure: 11/27/24 Pre-Operative Diagnosis: Prostate cancer Post-Operative Diagnosis: the same Surgery/Procedure Performed: Placement of gold markers and spacer gel in the prostate volleyball commentator: No Type of Anesthesia: General RN Documented Start/Stop Times: Operation Date: 11/27/24 11:30 Case Time Into Pre-Op 11/27/24 09:29 Anesthesia Start 11/27/24 10:49 Into Room 11/27/24 10:49 Procedure Start 11/27/24 10:59 Procedure End 11/27/24 11:05 Procedure Start Time: 10:59 Procedure Stop Time: 11:07 Select all DRAINS/GRAFTS/IMPLAN TS that apply: None Estimated Blood Loss: 0 Specimen collected: No Description of surgery: In the preoperative area I reviewed with the patient how the procedure is done we talked about the risk of the procedure including the risk of infection, bleeding, migration of the spacer gel, the patient is planning to have radiation to the prostate he understands that the spacer gel has demonstrated benefit in reducing the risk of toxicity from the ration radiation to the rectum but there is no guarantees that this spacer gel will prevent any serious complications or toxicity to the rectum or bowels. After reviewing this with the patient and his family organ to proceed with placement of a spacer gel matrix. Patient was taken back to the operating room after smooth induction of anesthesia he was placed supine on the table. The genitals and perineum were prepped and draped in usual sterile fashion. I then introduced a biplanar ultrasound probe into the rectum and performed ultrasonography and identified the Denonvilliers' fascia the prostate mid base and apex and seminal vesicles. The spacer gel mix was then prepared on the back table per manufactures instruction. Under ultrasound guidance in the midline perineum a bevel needle down we advanced through the perineum below the prostate into the space of Denonvilliers' fascia. This space which could be identified by ultrasound with a bright white layer between the prostate and the rectum. I then injected a puff of normal saline to identify the space further. After I confirmed that the needle was in the correct space in the mid prostate and the space of Denonvilliers' fascia between the rectum and the prostate. Then over the course of 15 seconds the gel matrix was injected slowly there was nice separation between the prostate and the rectum at the gel matrix was injected. The position of the gel matrix was confirmed by ultrasound. Then the injection needle was removed intact. Patient's perineum was cleaned patient was taken out of stirrups and then taken back to the PACU in good condition. The penis and testicles were prepped and draped in usual sterile fashion, ultrasound probe was placed into the rectum and biplanar ultrasound was performed on the prostate. Identified the base mid and apex of the prostate identified the transition zone prostate. Then using a needle the first hybrid tester was placed into the right base of the prostate, the second hybrid tester was placed in the left base of the prostate, and the third core marker was placed in the right apex of the prostate after all 3 markers were placed the placement of the markers were confirmed by ultrasonography. Surgical Findings: gold markers placed, and gold markers Complications Complications: No Admit VTE Documentation VTE Present on Admission: No VTE Mechan Device Prophylaxis: SCD's VTE Pharm Prophylaxis ordered?: No 11/27/24 1109 Cosigner Signature (if applicable): CC: Dr. Kayleigh Cooney MD; Dr. Nuno Mauricio MD Signed Normal [facility] Radiation Oncology Visiton 0 11-13-2024 Radiation Oncology Visit [facility] [address] [place] [address] OFFICE VISIT Date of Service: 11/13/24 1028 MR#: [id number] Acct: [id number] Name: AUGUST CUEVAS Rep #: [id number] : 1950 From: Mikey Blackwell DO Age/Sex: 74/M Location: [facility] Status: Signed Intake Vital Signs 11/13/24 10:36 Height 5 ft 11 in Weight: 203 lb 8 oz BMI 28.3 BP 153/81 H Blood Pressure Location Lt brachial Position Sitting Respiration 18 Pulse 83 Pulse Source Monitor Temp 99.5 F H Temperature Source Temporal Artery Pulse Oximetry (%) 94 Oxygen Delivery Method room air Intake Visit Reasons: PROSTATE CA Is patient in pain?: No Allergies No Known Allergies Allergy (Unverified 11/13/24 10:33) Medications ???Medication ???Instructions ???Recorded ???Confirmed ???Type ascorbate calcium (vitamin C) 500 500 mg PO QDAY 11/10/24 11/13/24 History mg tablet atorvastatin 20 mg tablet 20 mg PO QHS 11/10/24 11/13/24 History sandrita seed oil-omega 3-6-9 1,000 mg cap PO 11/10/24 11/13/24 History (580 mg) capsule coenzyme Q10 100 mg capsule (Co 100 mg PO QDAY 11/10/24 11/13/24 History Q-10) multivitamin 1 tab PO QAM 11/10/24 11/13/24 History vitamins A,C,X-tcod-rtyfvc 4,296 1 cap PO BID 11/10/24 11/13/24 History mcg-226 mg-90 mg capsule (PreserVision AREDS) lysine 500 mg tablet (L-Lysine) 500 mg PO QDAY 11/13/24 11/13/24 History saw palm 160 mg-vit E 100 tab PO 11/13/24 11/13/24 History unit-selen 100 kgy-foih-gegudj-pyge um tablet (Prostate Health) Have you fallen in the past year?: No PFSH PFSH Medical History Mild asthma Hyperlipemia Prostate cancer Home Medications ???Medication ???Instructions ???Recorded ???Last Taken ???Type ascorbate calcium (vitamin C) 500 500 mg PO QDAY 11/10/24 Unknown History mg tablet atorvastatin 20 mg tablet 20 mg PO QHS 11/10/24 Unknown History sandrita seed oil-omega 3-6-9 1,000 mg cap PO 11/10/24 Unknown History (580 mg) capsule coenzyme Q10 100 mg capsule (Co 100 mg PO QDAY 11/10/24 Unknown History Q-10) multivitamin 1 tab PO QAM 11/10/24 Unknown History vitamins A,C,G-kgzk-wrrrpo 4,296 1 cap PO BID 11/10/24 Unknown History mcg-226 mg-90 mg capsule (PreserVision AREDS) lysine 500 mg tablet (L-Lysine) 500 mg PO QDAY 11/13/24 Unknown History saw palm 160 mg-vit E 100 tab PO 11/13/24 Unknown History unit-selen 100 aav-llcv-ibghcf-pyge um tablet ([employer]) Allergy/AdvReac Type Severity Reaction Status Date / Time No Known Allergies Allergy Unverified 11/13/24 10:33 Surgical History History of hip surgery H/O prostate biopsy Social History Smoking Status: Never smoker alcohol intake: never Referring Provider: Dung Mauricio MD Diagnosis: August Cuevas is a 74 year-old male diagnosed with low risk prostate cancer (GS 3+3, PSA 5.36, cT1c) TRUS guided prostate biopsy (03/13/2022), now with evidence of progression while on active surveillance with MRI guided biopsy demonstrating Rob 3+4 adenocarcinoma and PSA has risen to 9.69. History of Present Illness: 03/13/2022: Patient completed TRUS Prostate biopsy.??? Pathology demonstrated Rob 3+3 adenocarcinoma involving about 10% of 2/2 cores in the right prostate base, and about 30% of 1/2 cores in the left prostate apex.??? All remaining biopsies were negative. 09/15/2024: Patient completed MRI prostate with and without contrast.??? This demonstrated a 5.56 mm low signal nodule in the far anterior and medial aspect of the left peripheral zone with diffuse bright diffusion weighted signal in the nodule and surrounding left peripheral zone and associated ADC dark signal with some enhancement on the postcontrast study.??? This could represent poorly vascularized or necrotic tumor or nonspecific intermediate nodule.??? PI-RADS Category 3 10/06/2024: Patient completed MRI guided prostate biopsy.??? This demonstrated Rob 3+4 adenocarcinoma involving about 40% of 1/2 cores in the right prostate base and the left prostate apex core biopsy was negative. Radiation Treatment History: No prior history of radiation therapy. No pacemaker. No diagnosis of radiosensitizing comorbidity. Interval History: Patient presents for initial consultation. He reports having a diagnosis of prostate cancer which was low risk dating back to 2021 and was on active surveillance. He has had no changes in symptoms but had increase in his PSA and biopsy demonstrated higher Rob. He does report fairly minor urinary symptoms. He does report weak stream and frequency about half the time, intermittency and in (more content not included)... Normal [facility] PROSTATE BXon 10-06-2024 PROSTATE BX Patient Age/Sex Location Account Attending Physician AUGUST CUEVAS/[place] [facility] [id number] Dr. Nuno Mauricio MD Specimen: [id number] Received: 10/07/24 Status: PHOEBE Wolfe Num: [id number] Spec Type: PROST BX Subm Dr: Dr. Nuno Mauricio MD HEADER OPERATION: Prostate biopsy PRE-OP DIAGNOSIS: Elevated PSA TISSUE SUBMITTED: A- Right base, B- Left apex MICROSCOPIC DIAGNOSIS A. Right prostate, base, core biopsy: Prostatic adenocarcinoma. Ashmore grade: 3+4=7 Number of cores involved: 1/2 Proportion of tissue involved: 40 % Perineural invasion: Not identified. Greatest tumor length: 0.7 cm Focal high-grade prostatic intraepithelial neoplasia (HGPIN). B. Left prostate, apex, core biopsy: Prostatic tissue, negative for malignancy. . 10/08/2024 COMMENT Case has been reviewed in consultation with Dr. Montgomery who concurs with the above diagnosis. IDC:AM MICROSCOPIC DESCRIPTION Slides are reviewed. GROSS DESCRIPTION A - Received is one container designated prostate, right base. The specimen consists of two elongated fragments of light leal-white soft tissue each measuring 1.0 cm in length and 0.1 cm in diameter. The specimen is totally submitted in one cassette. B - Received is one container designated prostate, left apex. The specimen consists of two elongated fragments of light leal-white soft tissue measuring 0.5 and 0.7 cm in length and 0.1 cm in diameter. The specimen is totally submitted in one cassette. Ela 10/07/2024 TC:0 CPT: G0146 Patient Age/Sex Location Account Attending Physician AUGUST CUEVAS 74/M [facility] [id number] Dr. Nuno Mauricio MD Signed (signature on file) Dr. Oscar Francisco MD 10/09/24 1000 Normal [facility] Comment on above: Performed By: #### P PROSB ####[facility] [id number] [place], [place], [id number] CREATININE [employer] [facility] [facility] CLINICTICKon CREATININE WB < 1.0 Normal 0.70-1.30 [facility] Comment on above: Performed By: #### L 9100.0200 ####[facility] [id number] [place], [place], [address] EGFR WB > 60.0000 Normal >60 [facility] Comment on above: Performed By: #### L 9100.0200 ####[facility] [id number] [place], [place], [address] Pelvis W/WO Contraston 09-15 Pelvis W/WO Contrast [facility] Imaging Services [address] [place], [place] [address] Pelvis W/WO Contrast MR#: [id number] Acct: [id number] Name: AUGUST CUEVAS Rep #: [id number] : 1950 M 74 From: Jose Antonio rivera MD PCP: Dr. Kayleigh Cooney MD Status: [facility] CLI Study: Pelvis W/WO Contrast Date of Exam: 09/15/24 Exam# [id number] Ordering Dr: Nuno Mauricio MD [id number] STUDY: MR PROSTATE GLAND/ PELVIS WITH T WITHOUT CONTRAST REASON FOR EXAM: Male, 74 years old. MALIGNANT NEOPLASM OF PROSTATE TECHNIQUE: Standardized fat and water weighted pulse sequences were obtained in all 3 orthogonal planes, pre-and post contrast administration. IV 17cc clariscan was administered for the contrast portion of the examination. COMPARISON: None. FINDINGS: Prostate gland volume/size: 4.38 x 3.87 x 5.52 cm. Anterior fibromuscular stroma: Normal Peripheral zone: Small 5.6 mm low signal nodule in the far anterior and medial aspect of the left peripheral zone with diffuse bright diffusion weighted signal in the nodule and the surrounding left peripheral zone and associated ADC dark signal. On the postcontrast study no enhancement is present in the nodule with is seen in the surrounding tissue. This could represent a poorly vascularized or necrotic tumor or nonspecified intermediate nodule that is equivocal. Mostly symmetric bilaterally with a few linear interstitial fibrotic strands bilaterally. Central zone: Diffusely heterogeneous with small intervening cyst and nodules consistent with BPH. Diffuse postcontrast enhancement is present bilaterally. No discrete enhancing nodule or mass is seen that would indicate a neoplasm. Transitional zone: Diffusely heterogeneous with small intervening cyst and nodules consistent with BPH. Diffuse postcontrast enhancement is present bilaterally. No discrete enhancing nodule or mass is seen that would indicate a neoplasm. Prostate capsule: Intact Seminal vesicles: Normal bilaterally Pelvic sidewall lymphadenopathy: No lymphadenopathy is present. Bony structures: No marrow edema or lytic or blastic lesions are present. No enhancing lesions are present in the osseous structures. Normal urinary bladder. Normal visualized small intestine. There are multiple colonic diverticula of the sigmoid colon consistent with chronic diverticulosis. There is no pelvic fluid. There is no pelvic mass lesion or lymphadenopathy. Normal visualized pelvic arteries. Normal abdominal wall. MRI/Pelvis W/WO Contrast IMPRESSION: 1. Peripheral zone: Small 5.6 mm low signal nodule in the far anterior and medial aspect of the left peripheral zone with diffuse bright diffusion weighted signal in the nodule and the surrounding left peripheral zone and associated ADC dark signal. On the postcontrast study no enhancement is present in the nodule with is seen in the surrounding tissue. This could represent a poorly vascularized or necrotic tumor or nonspecified intermediate nodule that is equivocal 2. It is possible after biopsy the tumor was removed or cored and is now poorly visualized. Also if there has been any treatment this could suppress neoplastic features detected by MRI. 3. PI-RADS 3: intermediate (the presence of clinically significant cancer is equivocal) 4. Referring service reports a positive prostate gland biopsy indicative of neoplasm. 5. Prostate PET/CT exam can also be performed to determine if there is viable malignant neoplasm in the prostate gland. Prostate MRI reference: 15-30% of prostate cancers can go undetected on Prostate MRI. Monitoring and assessment by Primary physician, Urology, and oncology service recommended and treated clnically. (Cancers (Basel). 2022Oct 09;15(41):6726. doi: 10.3390/[id number] 825 Prostate Cancers Invisible on Multiparametric MRI: Pathologic Features in Correlation with Whole-Mount Prostatectomy Natalio Truong 1,2,*, Nick Trevino 3, Chelly Boogie 1,2, Jessica Hsieh 1,2, Mauro Milton 4, Julito Poon 5, Shadi Bell 6, Compa Yadav 1,2, Lorrie Salgado 1,2) Reference information: Normal prostate tissue Benign prostatic hypertrophy cancer/tumor - low signal peripheral , transitional, and central zones malignancy appears as bright on DWI and low signal on ADC map Prostate imaging-reporting and data system (PI-RADS) PI-RADS 1: very low (clinically significant cancer is highly unlikely to be present) PI-RADS 2: low (clinically significant cancer is unlikely to be present) PI-RADS 3: intermediate (the presence of clinically significant cancer is equivocal) PI-RADS 4: high (clinically significant cancer is likely to be present) PI-RADS 5: very high (clinically significant cancer is hi (more content not included)... Normal [facility] CBC + DIFFon 08-10-2024 Baso # 0.02 x10EE3/UL Normal 0.00 - 0.10 [facility] Comment on above: Performed By: #### 2 [id number] #### [facility],[address] [place], [place] [id number] Basophils/100 WBC (Bld) 0.3 % Normal 0.0 - 2.0 [facility] Comment on above: Performed By: #### 2 [id number] #### [facility],[address] [place] [address] CBC + DIFF Normal [facility] Comment on above: Result Comment: CBC- COMPLETE BLOOD COUNT Performed By: #### 2 [id number] #### [facility],[address] [place] [address] EO # 0.21 x10EE3/UL Normal 0.00 - 0.50 [facility] Comment on above: Performed By: #### 2 [id number] #### [facility],[address] [place] [address] Eosinophils/100 WBC (Bld) 4.1 % Normal 0.0 - 7.0 [facility] Comment on above: Performed By: #### 2 11930 #### [facility],[address] [place], [place] [address] Erythrocyte distribution width (RBC) [Ratio] 12.6 % Normal 12.0 - 15.6 [facility] Comment on above: Performed By: #### 2 [id number] #### [facility],[address] [place] [address] Hematocrit (Bld) [Volume fraction] 49.8 % Normal 40.0 - 52.0 [facility] Comment on above: Performed By: #### 2 [id number] #### [facility],[address] [place] [address] Hemoglobin (Bld) [Mass/Vol] 17.1 g/dL Normal 13.0 - 17.5 [facility] Comment on above: Performed By: #### 2 90281 #### [facility],[address] [place] [address] Lymph # 1.37 x10EE3/UL Normal 0.80 - 2.80 [facility] Comment on above: Performed By: #### 2 98008 #### [facility],[address] [place], [place] [address] Lymphocytes/100 WBC (Bld) 26.4 % Normal 20.0 - 45.0 [facility] Comment on above: Performed By: #### 2 11760 #### [facility],[address] [place], [place] [address] MANUAL DIFF N/A Normal [facility] Comment on above: Performed By: #### 2 79046 #### [facility],[address] [place] [address] 71172 MCH (RBC) [Entitic mass] 34 pg High 27 - 33 [facility] Comment on above: Performed By: #### 2 98274 #### [facility],[address] [place] [address] 01285 MCHC 34 X10 3 Normal 32 - 36 [facility] Comment on above: Performed By: #### 2 03677 #### [facility],[address] [place] [address] 00573 MCV (RBC) [Entitic vol] 98 fL Normal 81 - 98 [facility] Comment on above: Performed By: #### 2 29330 #### [facility],[address] [place] [address] 28189 Mccurtain # 0.53 x10EE3/UL Normal 0.20 - 1.00 [facility] Comment on above: Performed By: #### 2 04011 #### [facility],[address] [place] [address] 46348 MONOS % 10.3 % High 0.0 - 10.0 [facility] Comment on above: Performed By: #### 2 43072 #### [facility],[address] [place] [address] 90327 Morphology Marcel (Bld) [Interp] N/A Normal [facility] Comment on above: Performed By: #### 2 91927 #### [facility],[address] [place] [address] 86950 Neut # 3.04 x10EE3/UL Normal 1.50 - 7.10 [facility] Comment on above: Performed By: #### 2 22436 #### [facility],[address] [place] [address] 86093 Neutrophils/100 WBC (Bld) 58.8 % Normal 46.0 - 76.0 [facility] Comment on above: Performed By: #### 2 58161 #### [facility],[address] [place] [address] 39079 PLATELET 163 x10EE3/UL Normal 150 - 450 [facility] Comment on above: Performed By: #### 2 24731 #### [facility],[address] [place] [address] 79759 Platelet mean volume (Bld) [Entitic vol] 8.2 fL Normal 6.4 - 10.5 [facility] Comment on above: Result Comment: AUTO MATED DIFFERENTIAL Performed By: #### 2 55476 #### [facility],[address] [place] [address] 94869 RBC 5.07 x 10EE6/UL Normal 4.50 - 6.00 [facility] Comment on above: Performed By: #### 2 69383 #### [facility],[address] [place] [address] 44851 WBC 5.2 x 10EE3/UL Normal 4.5 - 10.8 [facility] Comment on above: Performed By: #### 2 66032 #### [facility],[address] [place] [address] 11805 CMP with eGFRon 08-10-2024 AGE 74 years Normal [facility] Comment on above: Performed By: #### 2 32208 #### [facility],[address] [place] [address] 63345 Albumin [Mass/Vol] 3.8 g/dL Normal 3.4 - 5.0 [facility] Comment on above: Performed By: #### 2 44901 #### [facility],[address] [place] [address] 30615 Albumin/Globulin [Mass ratio] 1.0 {ratio} Normal 0.9 - 1.6 [facility] Comment on above: Performed By: #### 2 77685 #### [facility],[address] [place] [address] 40119 ALK PHOS 101 U/L Normal 46 - 116 [facility] Comment on above: Performed By: #### 2 78613 #### [facility],[address] [place] [address] 16313 ALT [Catalytic activity/Vol] 30 U/L Normal 16 - 63 [facility] Comment on above: Performed By: #### 2 88666 #### [facility],[address] [place] [address] 97256 Anion gap [Moles/Vol] 13 mmol/L Normal 10 - 20 [facility] Comment on above: Performed By: #### 2 93683 #### [facility],[address] [place] [address] 61956 AST [Catalytic activity/Vol] 19 U/L Normal 15 - 37 [facility] Comment on above: Performed By: #### 2 90039 #### [facility],[address] [place] [address] 60179 B/C RATIO 15 ratio Normal 0 - 30 [facility] Comment on above: Performed By: #### 2 49390 #### [facility],[address] [place] [address] 03868 Bilirubin [Mass/Vol] 0.7 mg/dL Normal 0.2 - 1.0 [facility] Comment on above: Performed By: #### 2 45131 #### [facility],[address] [place] [address] 76791 Calcium [Mass/Vol] 9.3 mg/dL Normal 8.5 - 10.1 [facility] Comment on above: Performed By: #### 2 34767 #### [facility],[address] [place] [address] 78762 Chloride [Moles/Vol] 107 mmol/L Normal 98 - 107 [facility] Comment on above: Performed By: #### 2 36062 #### [facility],[address] [place] [address] 66015 CMP with eGFR Normal [facility] Comment on above: Result Comment: COMP REHENSIVE METABOLIC PANEL Performed By: #### 2 51229 #### [facility],[address] [place] [address] 49231 CO2 [Moles/Vol] 25.0 mmol/L Normal 21.0 - 32.0 [facility] Comment on above: Performed By: #### 2 98601 #### [facility],[address] [place] [address] 77910 Creatinine [Mass/Vol] 1.24 mg/dL Normal 0.70 - 1.30 [facility] Comment on above: Performed By: #### 2 49154 #### [facility],[address] [place] [address] 22217 eGFR 57 ML/MINUTE Low 60 - 999 [facility] Comment on above: Performed By: #### 2 74033 #### [facility],[address] [place] [address] 98752 GFR/1.73 sq M.predicted among non-blacks MDRD (S/P/Bld) [Vol rate/Area] mL/min/{1.73_m2} Normal 60 - 999 [facility] Comment on above: Result Comment: ACCO RDING TO THE NATIONAL KIDNEY DISEASE EDUCATION PROGRAM(NKDE), A NORMAL eGFR IS A VALUE GREATER THAN OR EQUAL TO 60 ML/MIN/1.73 SQ METERS. CHRONIC KIDNEY DISEASE: <60mL/MIN/1.73 SQ METERS KIDNEY FAILURE: <15mL/MIN/1.73 SQ METERS THIS TEST SHOULD ONLY BE USED FOR PATIENTS 18 YEARS OF AGE AND OLDER. Performed By: #### 2 25467 #### [facility],[address] [place] [address] 95127 Globulin (S) [Mass/Vol] 3.9 g/dL High 1.5 - 3.8 [facility] Comment on above: Performed By: #### 2 69047 #### [facility],[address] [place] [address] 43772 Glucose [Mass/Vol] 101 mg/dL Normal 74 - 106 [facility] Comment on above: Performed By: #### 2 57360 #### [facility],[address] [place] [address] 71567 Potassium [Moles/Vol] 4.3 mmol/L Normal 3.5 - 5.1 [facility] Comment on above: Performed By: #### 2 81583 #### [facility],[address] [place] [address] 47713 Protein [Mass/Vol] 7.7 g/dL Normal 6.4 - 8.2 [facility] Comment on above: Performed By: #### 2 67025 #### [facility],[address] [place] [address] 35605 Sodium [Moles/Vol] 141 mmol/L Normal 136 - 145 [facility] Comment on above: Performed By: #### 2 86817 #### [facility],[address] [place] [address] 35458 Urea nitrogen [Mass/Vol] 18 mg/dL Normal 7 - 18 [facility] Comment on above: Performed By: #### 2 56908 #### [facility],[address] [place] [address] 53775 LIPID PROFILEon 08-10-2024 Cholesterol [Mass/Vol] 169 mg/dL Normal 0 - 240 [facility] Comment on above: Performed By: #### 2 34893 #### [facility],[address] [place] [address] 92777 Cholesterol in HDL [Mass/Vol] 59 mg/dL Normal 40 - 60 [facility] Comment on above: Performed By: #### 2 91590 #### [facility],[address] [place] [address] 01764 Cholesterol in LDL [Mass/Vol] 97 mg/dL Normal 0 - 129 [facility] Comment on above: Performed By: #### 2 21189 #### [facility],[address] [place] [address] 00286 Cholesterol.total/Choles terol in HDL [Mass ratio] 2.9 {ratio} Normal 0.0 - 5.0 [facility] Comment on above: Performed By: #### 2 61611 #### [facility],[address] [place] [address] 49099 Lipid 1996 panel Normal [facility] Comment on above: Result Comment: LIPI D PROFILE Performed By: #### 2 89172 #### [facility],[address] [place] [address] 16455 Triglyceride [Mass/Vol] 66 mg/dL Normal 0 - 150 J [facility] Comment on above: Performed By: #### 2 57592 #### [facility],[address] [place] [address] 52666 VITAMIN B-12on 08-10-2024 Cobalamin (Vitamin B12) [Mass/Vol] 878 pg/mL Normal 193 - 986 [facility] Comment on above: Performed By: #### 2 25286 #### [facility],[address] [place] [address] 02490 No Panel Informationon 09-06 Prostate Specific Antigen Total 4.64 ng/mL 0.0-4.0 [facility] Work Phone: Comment on above: This test was perfor med using the TPSA assay method for the[employer] chemistry system. Values obtained with differentassay methods cannot be used interchangably.When changing PSA assays in the course of monitoring apatient, additional sequential testing should be carriedout to confirm baseline values. Vital Signs Date Time Vital Sign Value Performing Clinician Faci lity 04-13-2025 10:39-0400 Body height 180.[address] Kayleigh Cooney MD Work Phone: [facility] 04-13-2025 10:39-0400 Body mass index (BMI) [Ratio] 27.5 kg/m2 Dr. Kayleigh Cooney MD Work Phone: [facility] 04-13-2025 10:39-0400 Body temperature 98.3 [degF] Dr. Kayleigh Cooney MD Work Phone: [facility] 04-13-2025 10:39-0400 Body weight 89.[address] Kayleigh Cooney MD Work Phone: [facility] 04-13-2025 10:39-0400 Diastolic blood pressure 79 mm[Hg] Dr. Kayleigh Cooney MD Work Phone: [facility] 04-13-2025 10:39-0400 Heart rate 84 /min Dr. Kayleigh Cooney MD Work Phone: [facility] 04-13-2025 10:39-0400 Respiratory rate 18 /min Dr. Kayleigh Cooney MD Work Phone: [facility] 04-13-2025 10:39-0400 SaO2% (BldA) [Mass fraction] 95 % Dr. Kayleigh Cooney MD Work Phone: [facility] 04-13-2025 10:39-0400 Systolic blood pressure 118 mm[Hg] Dr. Kayleigh Cooney MD Work Phone: [facility] 02-09-2025 10:29-0400 Body height 180.[address] Kayleigh Cooney MD Work Phone: [facility] 02-09-2025 10:29-0400 Body mass index (BMI) [Ratio] 28.5 kg/m2 Dr. Kayleigh Cooney MD Work Phone: [facility] 02-09-2025 10:29-0400 Body temperature 98 [degF] Dr. Kayleigh Cooney MD Work Phone: [facility] 02-09-2025 10:29-0400 Body weight 92.[address] Kayleigh Cooney MD Work Phone: [facility] 02-09-2025 10:29-0400 Diastolic blood pressure 75 mm[Hg] Dr. Kayleigh Cooney MD Work Phone: [facility] 02-09-2025 10:29-0400 Heart rate 72 /min Dr. Kayleigh Cooney MD Work Phone: [facility] 02-09-2025 10:29-0400 Respiratory rate 16 /min Dr. Kayleigh Cooney MD Work Phone: [facility] 02-09-2025 10:29-0400 SaO2% (BldA) [Mass fraction] 93 % Dr. Kayleigh Cooney MD Work Phone: [facility] 02-09-2025 10:29-0400 Systolic blood pressure 128 mm[Hg] Dr. Kayleigh Cooney MD Work Phone: [facility] 01-06-2025 13:01-0400 Body mass index (BMI) [Ratio] 27.9 kg/m2 Dr. Kayleigh Cooney MD Work Phone: [facility] 01-06-2025 13:01-0400 Body temperature 98.2 [degF] Dr. Kayleigh Cooney MD Work Phone: [facility] 01-06-2025 13:01-0400 Body weight 90.[address] Kayleigh Cooney MD Work Phone: [facility] 01-06-2025 13:01-0400 Diastolic blood pressure 80 mm[Hg] Dr. Kayleigh Cooney MD Work Phone: [facility] 01-06-2025 13:01-0400 Heart rate 75 /min Dr. Kayleigh Cooney MD Work Phone: [facility] 01-06-2025 13:01-0400 Respiratory rate 18 /min Dr. Kayleigh Cooney MD Work Phone: [facility] 01-06-2025 13:01-0400 SaO2% (BldA) [Mass fraction] 95 % Dr. Kayleigh Cooney MD Work Phone: [facility] 01-06-2025 13:01-0400 Systolic blood pressure 125 mm[Hg] Dr. Kayleigh Cooney MD Work Phone: [facility] 11-27-2024 11:43-0500 Body temperature 97.4 [degF] Dr. Kayleigh Cooney MD Work Phone: [facility] 11-27-2024 11:43-0500 Diastolic blood pressure 91 mm[Hg] Dr. Kayleigh Cooney MD Work Phone: [facility] 11-27-2024 11:43-0500 Heart rate 87 /min Dr. Kayleigh Cooney MD Work Phone: [facility] 11-27-2024 11:43-0500 Respiratory rate 18 /min Dr. Kayleigh Cooney MD Work Phone: [facility] 11-27-2024 11:43-0500 SaO2% (BldA) [Mass fraction] 99 % Dr. Kayleigh Cooney MD Work Phone: [facility] 11-27-2024 11:43-0500 Systolic blood pressure 123 mm[Hg] Dr. Kayleigh Cooney MD Work Phone: [facility] 11-27-2024 11:25-0500 Inhaled oxygen flow rate 2 L/min Dr. Kayleigh Cooney MD Work Phone: [facility] 11-27-2024 09:47-0500 Body mass index (BMI) [Ratio] 27.6 kg/m2 Dr. Kayleigh Cooney MD Work Phone: [facility] 11-27-2024 09:47-0500 Body weight 89.[address] Kayleigh Cooney MD Work Phone: [facility] Encounters Encounter Date Encounter Type Care Provider Facility Start: 04-13-2025 End: 04-13-[address] Kayleigh Cooney MD Work Phone: [facility] Work Phone: Start: 04-13-2025 End: 04-13-[address] Mikey Blackwell [facility] Work Phone: Start: 03-29-2025 ambulatory KAYLEIGH COONEY [facility] Start: 03-24-2025 End: 03-24-[address] Kayleigh Cooney MD Work Phone: [facility] Work Phone: Start: 03-24-2025 End: 03-24-[address] Kayleigh Cooney MD -Outpatient Bone Densitometry Work Phone: Start: 03-24-2025 End: 03-24-2025 ambulatory [facility] Facility:[facility] Start: 03-16-2025 End: 03-16-[address] Kayleigh Cooney MD Work Phone: [facility] Work Phone: Start: 03-16-2025 End: 03-16-[address] Kayleigh Cooney MD -Laboratory [place] Work Phone: Start: 03-16-2025 End: 03-16-2025 ambulatory [facility] Facility:[facility] Start: 02-09-2025 End: 02-09-[address] Mikey Blackwell [facility] Work Phone: Start: 02-09-2025 End: 02-09-2025 ambulatory [facility] Facility:[facility] Start: 01-08-2025 Non-patient / Non-visit Dr. Mikey mandujano [facility] Work Phone: Start: 01-08-2025 ambulatory [facility] Facility: [facility] Start: 01-08-2025 ambulatory Mikey Rosalva Facility: [facility] Start: 01-08-[address] Mikey Raya on DO -Radiation Oncology Start: 01-06-2025 End: 01-06-[address] Mikey Blackwell [facility] Work Phone: Start: 01-06-2025 End: 01-06-2025 ambulatory [facility] Start: 01-04-2025 Non-patient / Non-visit Dr. Mikey mandujano [facility] Work Phone: Start: 01-04-2025 ambulatory [facility]: [facility] Start: 12-31-2024 Non-patient / Non-visit Dr. Mikey Espinal [facility] Work Phone: Start: 12-31-2024 ambulatory [facility]: [facility] Start: 12-29-2024 Non-patient / Non-visit Dr. Mikey Espinal [facility] Work Phone: Start: 12-29-2024 ambulatory Mikey Blackwell [facility]: [facility] Start: 12-11-2024 ambulatory Mikey Blackwell [facility]: [facility] Start: 12-11-2024 Non-patient / Non-[facility] Start: 12-10-2024 ambulatory [facility]: [facility] Start: 12-10-2024 Non-patient / Non-visit Dr. Mikey mandujano [facility] Start: 12-07-2024 ambulatory [facility]: [facility] Start: 12-07-2024 Non-patient / Non-[facility] Start: 12-07-2024 End: 12-07-[address] Mikey Blackwell [facility] Work Phone: Start: 12-07-2024 End: 12-07-2024 ambulatory [facility] Facility:[facility] Start: 11-27-2024 End: 11-27-2024 Admission to same day surgery center Dr. Nuno Mauricio MD -Surgical Day Care Start: 11-27-2024 End: 11-27-2024 ambulatory [facility] Facility:[facility] Start: 11-13-2024 End: 11-13-2024 ambulatory [facility] Start: 11-10-2024 ambulatory [facility]: [facility] Start: 10-06-2024 End: 10-06-2024 ambulatory Nuno Mauricio Facility:[facility] Start: 09-15-2024 End: 09-15-2024 ambulatory Nuno Mauricio Facility:[facility] Start: 08-10-2024 End: 08-10-2024 ambulatory KAYLEIGH COONEY [facility] Start: 07-20-2024 ambulatory [facility] Faci lity:[facility] Start: 09-06-2022 End: 09-06-2022 ambulatory [facility] Work Phone: Start: 09-06-2022 End: 09-06-2022 Patient encounter procedure [facility]-Laboratory, [place] Start: 03-13-2022 End: 03-13-2022 Patient encounter procedure [facility], Specimen Procedures Date Procedure Procedure Detail Performing Clinician Start: 04-13-2025 Assay of prostate sp ecific antigen total Dr. Kayleigh Cooney MD Work Phone: Comment on above: This test was perfor med using the [employer] tPSA method. Measured values of a patient sample can vary depending on the testing procedure used. PSA values determined on patient samples by different testing procedures cannot be used interchangeably. If there is a change in PSA assays while monitoring therapy, sequential testing should be performed to confirm baseline values. Start: 03-24-2025 Dual energy X-ray absorptiometry Dr. Kayleigh Cooney MD Work Phone: Start: 03-16-[address] Joann Cooney MD Work Phone: Start: 03-16-2025 Urnls dip stick/tabl et reagent auto microscopy Dr. Kayleigh Cooney MD Work Phone: Start: 03-16-2025 X-ray of thoracic sp ine, three views Dr. Kayleigh Cooney MD Work Phone: Start: 12-07-2024 MRI of pelvis with contrast Dr. Kayleigh Cooney MD Work Phone: Start: 08-10-2024 PSA screening KAYLEIGH PATEL Comment on above: Performed By: #### 2 [id number] #### [facility],[address] [place], [place] [id number] Plan of Treatment Date Care Activity Detail Author Start: 03-24-2025 Dual energy X-ray absorptiometry Dexa Bone Density Study [facility] Start: 03-24-2025 DXA Bone [Mass/Area] Bone density [facility] Start: 11-27-2024 Anes integ extremities ant trunk & perineum nos ANESTH SKIN EXT/PER/ATRUNK [facility] Start: 11-27-2024 Plmt interstitial dev radiat tx prostate 1/mult PLACE RT DEVICE/MARKER PROS [facility] Start: 11-27-2024 Transperineal plmt biodegradable matrl 1/neurology nurse njx TPRNL PLMT BIODEGRDABL MATRL [facility] Start: 11-27-2024 Ambulation without limitation [facility] Start: 11-27-2024 Medical regimen orders management [facility] Start: 11-27-2024 Medication education [facility] Start: 11-27-2024 Patient discharge [facility] Start: 11-27-2024 Taking patient vital signs [facility] Start: 11-27-2024 [facility] Patient referral [facility] Work Phone: Prostate specific an tigen measurement [facility] Payers Date Payer Category Payer Medicare [id number] 2024 Self-pay [id number] 2024 Unknown [id number] 1950 Unknown [id number] 2.16.8 40.1.960873.3.579.2.651 1950 Unknown [id number] 2.16.8 40.1.621509.3.579.2.651 Unknown [id number] 2.16.8 40.1.171087.3.579.2.462 Unknown [id number] 2.16.8 40.1.564319.3.579.2.462 Unknown [id number] 2.16.8 40.1.410713.3.579.2.462 Unknown [id number] 2.16.8 40.1.990283.3.579.2.462 Unknown [id number] 2.16.8 40.1.914618.3.579.2.462 Unknown [id number] 2.16.8 40.1.378932.3.579.2.462 Unknown [id number] 2.16.8 40.1.828399.3.579.2.462 Unknown [id number] 2.16.8 40.1.082830.3.579.2.462 Unknown [id number] 2.16.8 40.1.872850.3.579.2.462 Unknown [id number] 2.16.8 40.1.483845.3.579.2.462 Unknown [id number] 2.16.8 40.1.061799.3.579.2.462 Unknown [id number] 2.16.8 40.1.292771.3.579.2.462 Unknown [id number] 2.16.8 40.1.294256.3.579.2.462 Unknown [id number] 2.16.8 40.1.843171.3.579.2.462 Unknown [id number] 2.16.8 40.1.598798.3.579.2.462 Unknown [id number] 2.16.8 40.1.206380.3.579.2.462 Unknown [id number] 2.16.8 40.1.421742.3.579.2.462 Unknown [id number] 2.16.8 40.1.656560.3.579.2.462 Unknown [id number] 2.16.8 40.1.831745.3.579.2.462 Unknown [id number] 2.16.8 40.1.964302.3.579.2.462 Social History Date Type Detail Facility [facility] Work Phone: Start: 1950 Sex Assigned At Male [facility] Start: 11-20-[address] [facility] Never [facility] tobacco (finding) [facility] Medical Equipment Procedure Code Equipment Code Equipment Origin al Text Equipment Identifier Dates Injection, hydrogel spacer HYDROGEL, 10ML FDA Start: 11-27-2024 Injection, hydrogel spacer MARKERS, FIDUCIAL GOLD FDA Start: 11-27-2024 Injection, hydrogel spacer HYDROGEL, 10ML FDA Start: 11-27-2024 Injection, hydrogel spacer MARKERS, FIDUCIAL GOLD FDA Start: 11-27-2024 Injection, hydrogel spacer HYDROGEL, 10ML FDA Start: 11-27-2024 Injection, hydrogel spacer MARKERS, FIDUCIAL GOLD FDA Start: 11-27-2024 Goals Date Patient Goal Desired Activity /State Mental Status Date Assessment Result Facility 11-27-2024 Cognitive function Voice/Name [facility] Work Phone: Radiology Diagnostic study note 03-17-2025 Note Date & Type Note Facility 03-17-2025 Radiology Diagnostic study note [facility] Imaging Services [address] [place], [place] [address] Thoracic Spine 3 Views MR#: [id number] Acct: [id number] Name: AUGUST CUEVAS Rep #: [id number] : 1950 M 74 From: Katty Long MD PCP: Dr. Kayleigh Cooney MD Status: REG CLI Study:Thoracic Spine 3 Views Date of Exam: 03/16/25 Exam# [id number] Ordering Dr: Woodrow Cooney MD PROCEDURE: THORACIC SPINE 3 VIEWS 03/16/2025 REASON FOR EXAM: MID BACK PAIN X 1 WEEK, HX OF PROSTATE CA TECHNIQUE: Three views of the thoracic spine COMPARISON: None FINDINGS: There is a 50% compression deformity anteriorly at L1. There is a 50% anterior compression deformity at T9. There is a 25% anterior compression deformity at T6, and T7. Osteopenia is noted. RAD/Thoracic Spine 3 Views IMPRESSION: There is a 50% compression deformity anteriorly at L1. There is a 50% anterior compression deformity at T9. There is a 25% anterior compression deformity at T6, and T7. MRI or bone scan could be helpfulto determine chronicity. Reading Location: [place] CC: Dr. Kayleigh Cooney MD ~ Wallpaper Scraper: Signed [facility] Evaluation note 01-06-2025 Note Date & Type Note Facility 01-06-2025 Evaluation note Diagnosis Onset Date Resolution Cancer of prostate with intermediate recurrence risk (stage T2b-c or Gleaso acute January 06, 2025 12:07pm Cancer of prostate with intermediate recurrence risk (stage T2b-c or Gleaso acute February 09, 2025 10:16am [facility] Work Phone: Clinical Note 11-27-2024 Note Date & Type Note Facility 11-27-2024 Note [facility] Medical Records Department [address] [place] [id number] History Physical Exam 11/27/24 1050 MR#: [id number] Acct: [id number] Name: AUGUST CUEVAS Rep #: [id number] : 1950 74 From: Nuno Mauricio MD PCP: Dr. Kayleigh Cooney MD Status:[facility] Location: [place] [address] HPI - General General Date of Service: 11/27/24 Chief Complaint: Prostate cancer HPI Narrative AUGUST CUEVAS, is a 74 M who presents for placement of gold markers and spacer gel [facility] Medical History Wears glasses Arthritis Restless legs Heartburn Asthma Non-smoker History of pain when walking History of edema History of Holter monitoring Hx of fracture of hip Hyperlipemia Prostate cancer Home Medications ???Medication ???Instructions ???Recorded ???Last Taken ???Type atorvastatin 20 mg tablet 10 mg PO QHS 11/10/24 Unknown Hist ory coenzyme Q10 100 mg capsule (Co 100 mg PO QDAY 11/10/24 Unknown Hi story Q-10) multivitamin 1 tab PO QAM 11/10/24 Unknown Hist ory vitamins A,C,B-mfct-rrqnnt 4,296 1 cap PO BID 11/10/24 Unknown Hist ory mcg-226 mg-90 mg capsule (PreserVision AREDS) lysine 500 mg tablet (L-Lysine) 500 mg PO QDAY 11/13/24 Unknown Hi story saw palm 160 mg-vit E 100 3 tab PO DAILY 11/13/24 Unknown Hi story unit-selen 100 ozx-gice-yzvihd-pygeum tablet (Prostate Health) BOWELLIA 2 cap PO DAILY 11/20/24 Unknown Hi story RESVERITOL 2 cap PO DAILY 11/20/24 Unknown Hi story atorvastatin 10 mg tablet 10 mg PO QHS 11/20/24 Unknown Hist ory Allergy/AdvReac Type Severity Reaction Status Date / Time No Known Allergies Allergy Verified 11/27/24 09:45 Surgical History Hx of right cataract extraction Hx of left cataract extraction Hx of colonoscopy H/O prostate biopsy Social History Smoking Status: Never smoker alcohol intake: never Vital Signs Vital Signs Vital Signs: 11/27/24 09:47 11/27/24 09:47 11/27/24 09:53 Temperature 98.5 F 98.5 F Temperature Source Temporal Pulse Rate 74 74 Respiratory Rate 16 16 Respiratory Pattern Normal Blood Pressure 117/87 H 117/87 H Blood Pressure Mean 97 Blood Pressure Source Monitor Blood Pressure Position Semi-Fowlers Blood Pressure Location Left Arm Pulse Ox 98 98 Oxygen Delivery Method Room Air Weight Weight: 89.811 kg Body Mass Index (BMI) 27.6 11/27/24 1050 Cosigner Signature (if applicable): CC: Dr. Kayleigh Cooney MD; Dr. Nuno Mauricio MD Signed [facility] Evaluation note Note Date & Type Note Facility Evaluation note No assessment information availa ble [facility] Work Phone: Reason for referral (narrative) Note Date & Type Note Facility Reason for referral (narrative) No reason for referral information available [facility] Work Phone: Chief Complaint and Reason for Visit Chief Complaint Admit Date Space OAR and Gold Markers Placement Daniel uary 2024 9:26am PROSTATE CA December 07, 2024 12:15pm Amb Documentation December 29, 2024 12:5 0pm Amb Documentation December 31, 2024 12:5 9pm Amb Documentation January 04, 2025 12: 58pm OTV January 06, 2025 12: 07pm . January 08, 2025 12: 20pm Amb Documentation January 08, 2025 12: 45pm Amb Documentation January 08, 2025 1:2 2pm 1 MONTH F/U POST RT February 09, 2025 10: 16am VERTEBRAL COMPRESSION FRACTURES February 1:17pm Reason for Visit Admit Date Cancer of prostate with inte rmediate recurrence risk (stage T2b-c or Gleaso January 06, 2025 12:07pm Cancer of prostate with inte rmediate recurrence risk (stage T2b-c or Gleaso February 09, 2025 10:16am Chief Complaint Admit Date PROSTATE CA December 07, 2024 12:15pm Amb Documentation December 29, 2024 12:5 0pm Amb Documentation December 31, 2024 12:5 9pm Amb Documentation January 04, 2025 12: 58pm OTV January 06, 2025 12: 07pm . January 08, 2025 12: 20pm Amb Documentation January 08, 2025 12: 45pm Amb Documentation January 08, 2025 1:2 2pm 1 MONTH F/U POST RT February 09, 2025 10: 16am VERTEBRAL COMPRESSION FRACTURES February 1:17pm Chief Complaint Admit Date Amb Documentation December 29, 2024 12:5 0pm Amb Documentation December 31, 2024 12:5 9pm Amb Documentation January 04, 2025 12: 58pm OTV January 06, 2025 12: 07pm . January 08, 2025 12: 20pm Amb Documentation January 08, 2025 12: 45pm Amb Documentation January 08, 2025 1:2 2pm 1 MONTH F/U POST RT February 09, 2025 10: 16am VERTEBRAL COMPRESSION FRACTURES February 1:17pm 2 MONTH PROSTATE, PSA PRIOR April 13, 025 10:23am Advance Directives Advance Directive Response Recorded Date/ Time Living Will Yes November 20 12:30pm Do you have a Healthcare Power of Sr Risk Management Consultant? Yes November 20, 2024 12:30pm Name of Medical Power of Sr Risk Management Consultant November 20, 2024 12:30pm Summary Purpose Family History No Family History Records FoundNo Family History Records Found Additional Source Comments Goals (unrecognized section and content) Goals may be documented in a n alternate sectionGoals may be documented in an alternate sectionGoals may be documented in an alternate sectionGoals may be documented in an alternate section Care Teams (unrecognized sec tion and content) Team Status: Active Member Role Status Dates Dr. Kayleigh Cooney MD Primary Care Provider Active Team Status: Active Member Role Status Dates Dr. Kayleigh Cooney MD Primary Care Provider Active Start: December 29, 2024 Dr. Mikey Blackwell DO Attending Provider Active Start: December 29, 2024 Dr. Mikey Blackwell DO Referring Provider Active Start: December 29, 2024 Team Status: Active Member Role Status Dates Dr. Kayleigh Cooney MD Primary Care Provider Active Start: December 31, 2024 Dr. Mikey Blackwell DO Attending Provider Active Start: December 31, 2024 Team Status: Active Member Role Status Dates Dr. Kayleigh Cooney MD Primary Care Provider Active Start: January 04, 2025 Dr. Mikey Blackwell DO Attending Provider Active Start: January 04, 2025 Team Status: Inactive Member Role Status Dates Dr. Kayleigh Cooney MD Primary Care Provider Active Start: January 06, 2025 End: January 06, 2025 Dr. Kayleigh Cooney MD Referring Provider Active Start: January 06, 2025 End: January 06, 2025 Dr. Mikey Blackwell DO Attending Provider Active Start: January 06, 2025 End: January 06, 2025 Team Status: Active Member Role Status Dates Dr. Kayleigh Cooney MD Primary Care Provider Active Start: January 08, 2025 Dr. Mikey Blackwell DO Attending Provider Active Start: January 08, 2025 Dr. Mikey Blackwell DO Referring Provider Active Start: January 08, 2025 Team Status: Active Member Role Status Dates Dr. Kayleigh Cooney MD Primary Care Provider Active Start: January 08, 2025 Dr. Mikey Blackwell DO Attending Provider Active Start: January 08, 2025 Team Status: Inactive Member Role Status Dates Dr. Kayleigh Cooney MD Primary Care Provider Active Start: February 09, 2025 End: February 09, 2025 Dr. Kayleigh Cooney MD Referring Provider Active Start: February 09, 2025 End: February 09, 2025 Dr. Mikey Blackwell DO Attending Provider Active Start: February 09, 2025 End: February 09, 2025 Team Status: Inactive Member Role Status Dates Dr. Kayleigh Cooney MD Primary Care Provider Active Start: March 16, 2025 End: March 16, 2025 Dr. Kayleigh Cooney MD Attending Provider Active Start: March 16, 2025 End: March 16, 2025 Dr. Kayleigh Cooney MD Referring Provider Active Start: March 16, 2025 End: March 16, 2025 Team Status: Inactive Member Role Status Dates Dr. Kayleigh Cooney MD Primary Care Provider Active Start: March 24, 2025 End: March 24, 2025 Dr. Kayleigh Cooney MD Attending Provider Active Start: March 24, 2025 End: March 24, 2025 Dr. Kayleigh Cooney MD Referring Provider Active Start: March 24, 2025 End: March 24, 2025 Team Status: Active Member Role Status Dates Dr. Kayleigh Cooney MD Primary Care Provider Active Start: April 13, 2025 Dr. Mikey Blackwell DO Attending Provider Active Start: April 13, 2025 Dr. Mikey Blackwell DO Referring Provider Active Start: April 13, 2025 Team Status: Inactive Member Role Status Dates Dr. Kayleigh Cooney MD Primary Care Provider Active Start: April 13, 2025 End: April 13, 2025 Dr. Kayleigh Cooney MD Referring Provider Active Start: April 13, 2025 End: April 13, 2025 Dr. Mieky Blackwell DO Attending Provider Active Start: April 13, 2025 End: April 13, 2025 Team Status: Active Member Role Status Dates Dr. Kayleigh Cooney MD Primary Care Provider Active Team Status: Inactive Member Role Status Dates Dr. Kayleigh Cooney MD Primary Care Provider Active Start: November 27, 2024 End: November 27, 2024 Dr. Nuno Mauricio MD Attending Provider Active Start: November 27, 2024 End: November 27, 2024 Dr. Nuno Mauricio MD Referring Provider Active Start: November 27, 2024 End: November 27, 2024 Team Status: Inactive Member Role Status Dates Dr. Kayleigh Cooney MD Primary Care Provider Active Start: December 07, 2024 End: December 07, 2024 Dr. Mikey Blackwell DO Attending Provider Active Start: December 07, 2024 End: December 07, 2024 Dr. Mikey Blackwell DO Referring Provider Active Start: December 07, 2024 End: December 07, 2024 Team Status: Active Member Role Status Dates Dr. Kayleigh Cooney MD Primary Care Provider Active Start: December 07, 2024 Dr. Mikey Blackwell DO Attending Provider Active Start: December 07, 2024 Dr. Mikey Blackwell DO Referring Provider Active Start: December 07, 2024 Team Status: Active Member Role Status Dates Dr. Kayleigh Cooney MD Primary Care Provider Active Start: December 10, 2024 Dr. Mikey Blackwell DO Attending Provider Active Start: December 10, 2024 Dr. Mikey Blackwell DO Referring Provider Active Start: December 10, 2024 Team Status: Active Member Role Status Dates Dr. Kayleigh Cooney MD Primary Care Provider Active Start: December 11, 2024 Dr. Mikey Blackwell DO Attending Provider Active Start: December 11, 2024 Dr. Mikey Blackwell DO Referring Provider Active Start: December 11, 2024 Team Status: Active Member Role Status Dates Dr. Kayleigh Cooney MD Primary Care Provider Active Start: December 29, 2024 Dr. Mikey Blackwell DO Attending Provider Active Start: December 29, 2024 Dr. Mikey Blackwell DO Referring Provider Active Start: December 29, 2024 Team Status: Active Member Role Status Dates Dr. Kayleigh Cooney MD Primary Care Provider Active Start: December 31, 2024 Dr. Mikey Blackwell DO Attending Provider Active Start: December 31, 2024 Team Status: Active Member Role Status Dates Dr. Kayleigh Cooney MD Primary Care Provider Active Start: January 04, 2025 Dr. Mikey Blackwell DO Attending Provider Active Start: January 04, 2025 Team Status: Inactive Member Role Status Dates Dr. Kayleigh Cooney MD Primary Care Provider Active Start: January 06, 2025 End: January 06, 2025 Dr. Kayleigh Cooney MD Referring Provider Active Start: January 06, 2025 End: January 06, 2025 Dr. Mikey Blackwell DO Attending Provider Active Start: January 06, 2025 End: January 06, 2025 Team Status: Active Member Role Status Dates Dr. Kayleigh Cooney MD Primary Care Provider Active Start: January 08, 2025 Dr. Mikey Blackwell DO Attending Provider Active Start: January 08, 2025 Dr. Mikey Blackwell DO Referring Provider Active Start: January 08, 2025 Team Status: Active Member Role Status Dates Dr. Kayleigh Cooney MD Primary Care Provider Active Start: January 08, 2025 Dr. Mikey Blackwell DO Attending Provider Active Start: January 08, 2025 Team Status: Inactive Member Role Status Dates Dr. Kayleigh Cooney MD Primary Care Provider Active Start: February 09, 2025 End: February 09, 2025 Dr. Kayleigh Cooney MD Referring Provider Active Start: February 09, 2025 End: February 09, 2025 Dr. Mikey Blackwell DO Attending Provider Active Start: February 09, 2025 End: February 09, 2025 Team Status: Inactive Member Role Status Dates Dr. Kayleigh Cooney MD Primary Care Provider Active Start: March 16, 2025 End: March 16, 2025 Dr. Kayleigh Cooney MD Attending Provider Active Start: March 16, 2025 End: March 16, 2025 Dr. Kayleigh Cooney MD Referring Provider Active Start: March 16, 2025 End: March 16, 2025 Team Status: Active Member Role Status Dates Dr. Kayleigh Cooney MD Primary Care Provider Active Start: March 24, 2025 Dr. Kayleigh Cooney MD Attending Provider Active Start: March 24, 2025 Dr. Kayleigh Cooney MD Referring Provider Active Start: March 24, 2025 Team Status: Inactive Member Role Status Dates Dr. Kayleigh Cooney MD Primary Care Provider Active Start: March 24, 2025 End: March 24, 2025 Dr. Kayleigh Cooney MD Attending Provider Active Start: March 24, 2025 End: March 24, 2025 Dr. Kayleigh Cooney MD Referring Provider Active Start: March 24, 2025 End: March 24, 2025 Team Status: Active Member Role Status Dates Dr. Kayleigh Cooney MD Primary Care Provider Active Start: April 13, 2025 Dr. Mikey Blackwell DO Attending Provider Active Start: April 13, 2025 Dr. Mikey Blackwell DO Referring Provider Active Start: April 13, 2025 Team Status: Inactive Member Role Status Dates Dr. Kayleigh Cooney MD Primary Care Provider Active Start: April 13, 2025 End: April 13, 2025 Dr. Kayleigh Cooney MD Referring Provider Active Start: April 13, 2025 End: April 13, 2025 Dr. Mikey Blackwell DO Attending Provider Active Start: April 13, 2025 End: April 13, 2025 (unrecognized sect ion and content) No Status Records FoundNo Status Records Found INFORMATION SOURCE (unrecogn ized section and content) DATE CREATED AUTHOR 04/11/2025 [facility] DATE CREATED AUTHOR AUTHOR'S ORGANIZ ATION 04/11/2025 [facility] FOR RECORDS PERTAINING TO PATIENTS WHO ARE OR HAVE BEEN ENROLLED IN A CHEMICAL DEPENDENCY/SUBSTANCEABUSE PROGRAM, SOME INFORMATION MAY BE OMITTED. This clinical summary was aggregated from multiple sources. Caution should be exercised in using it in the provision of clinical care. This summary normalizes information from multiple sources, and as a consequence, information in this document may materially change the coding, format and clinical context of patient data. In addition, data may be omitted in some cases. CLINICAL DECISIONS SHOULD BE BASED ON THE PRIMARY CLINICAL RECORDS. [employer] provides no warranty or guarantee of the accuracy or completeness of information in this document.
== END | disposition home or self-care (01) ==
LOC: LAB 09:30
PROVIDERS: PCP Family Medicine; Referring Provider Student in an Organized Health Care Education/Training Program; Visit Provider Student in an Organized Health Care Education/Training Program
DX: C61 Malignant neoplasm of prostate (principal)
CPT/HCPCS: 36415; 84153

== ENCOUNTER → 2025-07-15 | Outpatient (CLI) | payer MEDICARE, OTHER, SELFPAY ==
[2025-07-15 11:38] LABS: PSA,Total- Diagnostic 2.02 ng/mL (0.00-4.00)
== END | disposition home or self-care (01) ==
PROVIDERS: PCP Family Medicine; Referring Provider Student in an Organized Health Care Education/Training Program; Visit Provider Student in an Organized Health Care Education/Training Program
DX: C61 Malignant neoplasm of prostate (principal)
CPT/HCPCS: 36415; 84153

== ENCOUNTER → 2025-08-11 | Outpatient (CLI) | payer MEDICARE, OTHER, SELFPAY ==
[2025-08-11 13:02] LABS: Hematocrit 44.5 % (40-54); Hemoglobin 15.8 g/dL (13.0-16.5); Immature Granulocytes Count 0.010 X10^3/uL (0.0-0.0); Mean Corp Hgb Conc 35.5 g/dL (32-36); Mean Corpuscular Volume 96.3 fL (80-94); Mean Platelet Vol. 10.6 fl (6.2-12.0); NRBC Flagged by Analyzer 0 % (0-5); Platelet Count 151 K/mm3 (150-450); RBC Distribution Width CV 13.2 % (11.6-14.6); RBC Distribution Width SD 47.6 fl (35.1-43.9); Red Blood Count 4.62 M/mm3 (4.6-6.2); White Blood Count 5.4 K/mm3 (4.4-11.0)
[2025-08-11 13:59] LABS: AST(SGOT) 25 U/L (<=37); Alanine Aminotransfer ALT/SGPT 29 U/L (<=46); Albumin, Serum 4.2 g/dL (3.4-4.8); Alkaline Phosphatase 80 U/L (40-129); Anion Gap 9 (5-15); BUN 20 mg/dL (4-19); BUN/Creat Ratio 18.8 RATIO (10-20); Calcium,Total 9.0 mg/dL (7.6-11.0); Carbon Dioxide 23.5 mmol/L (21.0-32.0); Chloride 109 mmol/L (98-108); Cholesterol 167 mg/dL (<=200); Globulin 2.8 g/dL (2.2-4.2); Glucose 93 mg/dL (70-99); Low Density Lipoprotein Calc. 103 mg/dL; Potassium 3.9 mmol/L (3.3-5.1); Triglycerides 92 mg/dL; Very Low Density Lipoprotein 18 mg/dL (5-40); Vitamin B12 522 pg/mL (180-914); cholesterol:hdl ratio screen 3.70
== END | disposition home or self-care (01) ==
LOC: LAB 12:10
PROVIDERS: PCP Family Medicine; Referring Provider Family Medicine; Visit Provider Family Medicine
DX: Z00.00 Encounter for general adult medical examination without abnormal findings (principal); E78.5 Hyperlipidemia, unspecified
CPT/HCPCS: 36415; 80053; 80061; 82607; 85025